=== PATIENT | male | born 1945 | race Caucasian/White ===

== ENCOUNTER 2018-02-04 15:35 | Outpatient (RCR) | payer MEDICARE, BC, SELFPAY ==
--- NOTE | 2018-02-05 08:25 | HP.OTEVAL ---
Patient's Visit Information ASHLEY LO is a 72 year old M, referred to Occupational Therapy by Cheyanne Craig, with a diagnosis of LE lymphedema. Date of Evaluation: 02/04/18 Occupational Therapist: Annalise Coburn, GRISELDA/Janett, T - Subjective Subjective: Pt states he started having sweeling in his LE about 8 weeks ago- went to his foot dr and he put pt is a unaboot- but it caused a new wound on his left LE. pt states his wound was healing slowly and he decided to go see a canvas goods maker. Pt has been using a cream on his LE that has been helpful. pt states he has been using compression socks for about 4-5 months. He got the compression socks at [employer] in [place]. Pt states he is going to get new ones soon. Pt states he did use a medicated cream that the canvas goods maker gave him. pt states he returned to canvas goods maker and he was refered to this Clinic and a wound center. - Lymphedema (Circumferential Measure) Ankle: right 28cm left 32cm Lower calf: right 27.5cm left 29cm Largest calf: right 39cm left 42cm Below knee: right 36.5cm left 39.5 cm - Lower Limb Functional Index Lower Extremity Functional Score: 56 - Goals Demonstrate a 20% reduction in edema by d/c: Yes Demonstrate adequate knowledge of self-bangaging by 1st week: Yes Demonstrate adequate knowledge skin care/prec by 2nd week: Yes Demonstrate adequate knowledge therapeutic exercises by d/c: Yes Select approp compression garment w/donning/care/wear by d/c: Yes Voice need to replace compression garment every 4-6mo by dc: Yes - Rehabilitation General Assessment: pt demo with swelling in left LE. skin dry- skin purple in color- wounds are wapped and pt has been using cream on his wounds. pt did a nice job with his wound waps. pt demo need for skilled therapy services to ed. pt on dx. Therapist ed. pt on lymph stim ex, use of lotion for skin care and use of compression socks. pt demo understanding of skin care, wraps to LE with use of tubigip to assist in keeping wraps from sliding down. pt demo frustration with how slow wound was healing, therapist ed. pt that wounds do take a long time to heal. discussed with pt that returning to wound center with is inital foot . to work with pt. pt agreed this POC. Therapist did ed. Pt. and gave handouts on ex to stimulate lymph fluid circ. and cont use of wraps and when wounds heal to use compression socks at all times ex. when sleeping. pt demo understanding. pt to call with questions or concerns. Rehabilitation Potential: Questionable - Anticipated Interventions Anticipated Interventions: Education re Diagnosis, Education re Life-long lymphedema Management, Education re Self-Bandaging Techniques, Education re Skin Care and Precautions, Education re Correct Donning Tech,Care&Wearing Sched Comp Garments, Caregiver Training, Home Program - Visit Plan General Plan: pt demo understanding of HEP and states he will return to is foot dr to work on his wounds. TEXT: Thank you for the opportunity to evaluate your patient. For Medicare and Medicare HMO plans, please review the plan of care and approve it. It will need to be FAXED BACK to us at [phone] for Medicare purposes. Please let me know if there are questions or concerns regarding this plan of care. Physician Signature: Date:
--- NOTE | 2018-03-19 11:17 | HP.OT.NRP ---
HP - Discharge Summary - Patient Information ASHLEY LO was seen in my office for initial evaluation on 02/04/18. The following Plan of Care was established for this patient: - Anticipated Interventions Anticipated Interventions: Education re Diagnosis, Education re Life-long lymphedema Management, Education re Self-Bandaging Techniques, Education re Skin Care and Precautions, Education re Correct Donning Tech,Care&Wearing Sched Comp Garments, Caregiver Training, Home Program This patient was last seen in our office 02/04/18. Pertinent comments regarding their Occupational therapy will appear below: pt was seen for intial OT eval only- pt has not scheduled or returned with compression gaments to ensure proper fit. Due to timelapse in schedule pt D/C at this time. At this point I will be discontinuing this patient from occupational therapy. I would be happy to see this patient again in the future if found appropriate by the physician. Thank you! Annalise Coburn, OTR/L, CHT
== END 2018-02-04 19:00 | disposition home or self-care (01) ==
LOC: OT 15:35
PROVIDERS: Visit Provider Dermatology Pediatric Dermatology
DX: I89.0 Lymphedema, not elsewhere classified (principal)
CPT/HCPCS: 97166

== ENCOUNTER 2019-02-17 11:30 | Outpatient (RCR) | payer MEDICARE, BC, SELFPAY ==
[2019-02-06 15:52] VITALS: RESP 20; TEMP 36.4; BMI 76.8
--- NOTE | 2019-02-06 16:55 | PCM.WC.HP ---
(1) Lower extremity ulceration Status: Acute Current Visit: Yes Code(s): L97.909 - Non-pressure chronic ulcer of unspecified part of unspecified lower leg with unspecified severity Comment: Bilateral (2) Bilateral lower extremity edema Status: Acute Current Visit: Yes Code(s): R60.0 - Localized edema (3) PAD (peripheral artery disease) Status: Acute Current Visit: Yes Code(s): I73.9 - Peripheral vascular disease, unspecified (4) T2DM (type 2 diabetes mellitus) Status: Acute Current Visit: Yes Code(s): E11.9 - Type 2 diabetes mellitus without complications (5) HTN (hypertension) Status: Chronic Current Visit: Yes Code(s): I10 - Essential (primary) hypertension (6) CAD (coronary artery disease) Status: Acute Current Visit: Yes Code(s): I25.10 - Atherosclerotic heart disease of [place] coronary artery without angina pectoris (7) Obesity Status: Acute Current Visit: Yes Code(s): E66.9 - Obesity, unspecified (8) Decreased dorsalis pedis pulse Status: Acute Current Visit: Yes Code(s): R09.89 - Other specified symptoms and signs involving the circulatory and respiratory systems (9) Tobacco abuse Status: Acute Current Visit: Yes Code(s): Z72.0 - Tobacco use (10) Venous insufficiency Status: Acute Current Visit: Yes Code(s): I87.2 - Venous insufficiency (chronic) (peripheral) History of Present Illness Date of Service: 02/06/19 Chief Complaint: Superficial lower extremity ulcers and swelling History of Wound: Shayan is a pleasant 73-year-old male who presents today with complaint of bilateral superficial lower leg ulcers and edema. Patient is managed by Kathleen Guaman(?), a primary care provider in [place], [place]. Significant past medical history includes a 60+ pack year history of smoking tobacco, cardiovascular disease with cardiac stenting times 3 (?), peripheral vascular disease of bilateral lower extremities, and rne-[id number]-[id number] diabetes. He has seen a vascular surgeon, Minesh Jeong, for placement of stents in legs. He is unsure if he has had stenting in 1 or both of his lower extremities. He reports his last leg stenting occurred about 4 years ago. He reports he has been dealing with the superficial ulcerations and swelling in his bilateral lower extremities for the past year. He previously saw Dr. Herber, a kick plate installer, but it was felt that they had reached a plateau with treatment. He then began seeing Dr. Craig, a supply chain technician, who was treating his legs with urea cream. He states he has been using this for about 3 to 4 months, as well as applying compression to bilateral lower extremities with Kerlix and Coban. Per patient, he reports he was discharged from Dr. Craig due to his current smoking status. He is unsure if there has been any improvement in the swelling and ulcerations of his legs with this treatment. At this time, patient has no open wounds requiring debridement. He does have weeping from bilateral lower extremities. He reports he has used Unna boots in the past with good efficacy. Denies any fever, chills, nausea, vomiting, diarrhea, purulent or foul-smelling drainage, or red, streaking rash. He denies any history of DVT. He is currently on Plavix and aspirin for maintenance of cardiac stents. Past Medical History Past Medical History: Chronic Problems HTN (hypertension) (Chronic) Allergies/Adverse Reactions: Allergies No Known Allergies Allergy (Verified 02/06/19 16:11) Home Medications: Ambulatory Orders Medication Instructions Recorded Aspirin [Aspirin, Baby] 81 mg PO DAILY@0800 02/06/19 Atorvastatin Calcium 40 mg PO 02/06/19 Cilostazol 100 mg PO 02/06/19 Clopidogrel Bisulfate [Clopidogrel] 100 mg PO 02/06/19 Colchicine 0.6 mg PO 02/06/19 Latanoprost [Xalatan] 2.5 ml OP 02/06/19 Metformin HCl 1,000 mg PO 02/06/19 Metoprolol Succinate 100 mg PO 02/06/19 Timolol 0.5% [Timoptic] 1 drp EACH EYE BID 02/06/19 Smoking Status: Current every day smoker Review of Systems Constitutional: Denies: Chills, Fever, Weight Change Eyes: Denies: Pain, Vision Change HEENT: Denies: Difficulty Hearing, Difficulty Swallowing, Sinus Congestion Cardiovascular: Reports: Edema. Denies: Chest Pain, Palpitations Respiratory: Denies: Cough, Shortness of Breath Gastrointestinal: Denies: Diarrhea, Nausea, Vomiting Genitourinary: Denies: Dysuria, Hematuria Skin: Reports: Wounds - See HPI Endocrine: Denies: Heat/ Cold Intolerance, Polydipsia, Polyuria Hematologic/ Lymphatic: Denies: Easy Bruising, Easy Bleeding - Physical Exam Vital Signs Temp Resp 97.6 F L 20 H 02/06/19 15:52 02/06/19 15:52 General: Alert, Oriented x3, Cooperative, No apparent distress HEENT: Atraumatic Oral: Moist Mucosa Lungs: Clear to auscultation, Normal air movement Cardiovascular: Regular rate, Regular Rhythm, Normal S1, Normal S2, No murmurs Abdomen: Soft, Non Tender, Obese Extremities: No clubbing, No cyanosis, Diminished Peripheral Pulses - Dorsal pedis pulses, Edema - 1+ bilateral lower extremity edema with chronic venous changes Skin: Ulcer/ Wound - Due to chronic venous changes, multiple superficial ulcerations present on bilateral lower extremities. No signs of obvious infection at this time. Wound Measurements and Assessment WC - Nurse 1 - General Ulcer Measurement Start: 02/06/19 15:27 Freq: Status: Active Protocol: Activity Type Activity Date Activity User E-Sign Co-Sign Detail Recorded Client Recorded Date Recorded By Document 02/06/19 15:52 DL [id number] 02/06/19 16:07 DL 02/06/19 15:52 Wound Center Nurse 1 [Ulcer Assessment] #2 LLE -Current Size (cm) - Length 42 -Current Size (cm) - Width 37 -Total Square Cm 1554 -Photo Taken Yes -Exudate Amt Medium -Exudate Type Serosanguineous -Wound Margin Indistinct, Non -Visible -Granulation Amt Large (67-100%) -Granulation Quality Red -Necrosis Amt None Present (0 %) -Structure Exposed N/A -Texture (Snow-wound Skin Appearance) Excoriation, Localized Edema ,Scarring -Moisture (Snow-wound Skin Appearance Weeping ) -Color (Snow-wound Skin Appearance) Erythema, Hemosiderin Staining -Temperature (Snow-wound Skin No Abnormality Appearance) (Pt Warm) -Tenderness on Palpation (Snow-wound No Skin Appearance) -Ulcer Cleansing Wound Cleanser -Foul Odor after Cleansing No #1 RLe -Current Size (cm) - Length 36 -Current Size (cm) - Width 38 -Current Size (cm) - Depth 0.1 -Total Square Cm 1368 -Photo Taken Yes -Exudate Amt Small -Exudate Type Serosanguineous -Wound Margin Indistinct, Non -Visible -Granulation Amt Large (67-100%) -Granulation Quality Red -Necrosis Amt None Present (0 %) -Structure Exposed N/A -Texture (Snow-wound Skin Appearance) Excoriation, Localized Edema ,Scarring -Moisture (Snow-wound Skin Appearance Weeping ) -Color (Snow-wound Skin Appearance) Erythema, Hemosiderin Staining -Temperature (Snow-wound Skin No Abnormality Appearance) (Pt Warm) -Tenderness on Palpation (Snow-wound No Skin Appearance) -Ulcer Cleansing Wound Cleanser -Foul Odor after Cleansing No [Edema Assessment] -Right Calf (cm) 38 -Right Ankle (cm) 26.7 -Left Calf (cm) 37.5 -Left Ankle (cm) 26.5 WC - Nurse 2 - General Ulcer CM Notes Start: 02/06/19 15:27 Freq: Status: Active Protocol: Activity Type Activity Date Activity User E-Sign Co-Sign Detail Recorded Client Recorded Date Recorded By Document 02/06/19 16:49 AN [id number] 02/06/19 16:50 AN 02/06/19 16:49 Pain Scale: 0-10 Numeric [Pain] -Is Patient Pain Free? Yes Musculoskeletal: No Tenderness to Palpation of Joints or Extremities, No Muscle Wasting Neurological: Neuro grossly intact Psych/Mental Status: Normal Affect, Appropriate, Alert and oriented to time, place, person, mood and affect Debridement Note Post-Debridement Measurements/Treatment - Nurse 2 - General Ulcer CM Notes Start: 02/06/19 15:27 Freq: Status: Active Protocol: Activity Type Activity Date Activity User E-Sign Co-Sign Detail Recorded Client Recorded Date Recorded By Document 02/06/19 16:49 AN [id number] 02/06/19 16:50 AN 02/06/19 16:49 Pain Scale: 0-10 Numeric Is Patient Pain Free? Yes No debridement was completed today Assessment/Plan Active Problems Bilateral lower extremity edema (Acute) PAD (peripheral artery disease) (Acute) Lower extremity ulceration (Acute) Bilateral T2DM (type 2 diabetes mellitus) (Acute) HTN (hypertension) (Chronic) CAD (coronary artery disease) (Acute) Obesity (Acute) Decreased dorsalis pedis pulse (Acute) Tobacco abuse (Acute) Venous insufficiency (Acute) Assessment: see above diagnoses Plan: The patient was seen and examined at the wound center today and was updated on the plan of care. No debridement done today in office, as none indicated.. The patients wound care will consist of: Application of bilateral Unna boots, change every 3 days. States that he has tolerated the Unna boots well in the past. Wound cultures held at this time.. Baseline bloodwork ordered. Vascular studies ordered. We will also request prior records from his vascular surgeon for continuity of care. Patient educated on the importance of diet on wound healing and instructed to increase protein and vitamin C intake. Patient verbalized understanding. Patient will follow up at wound healing center in one week or sooner if needed. This note was generated with [employer]ik[employer] dictation software. It may contain incorrect words, spelling, and punctuation that were not noted in checking the note before signing. Code Visit Office Visits / Consults: [id number] OV L4 New
[2019-02-10 15:47] VITALS: BP 134/53; PULSE 70; RESP 16; TEMP 36.4; BMI 76.8
--- NOTE | 2019-02-13 12:36 | VDLE_ITS ---
Reason For Study: Lower leg edema RIGHT LEFT CFV is compressible, spontaneous, phasic, CFV is compressible, spontaneous, phasic, competent and demonstrates normal competent, and demonstrates normal augmentation. augmentation. FV is compressible, spontaneous, phasic, FV is compressible, spontaneous, phasic, competent and demonstrates normal competent and demonstrates normal augmentation. augmentation. POP V is compressible, spontaneous, phasic, POP V is compressible, spontaneous, phasic, competent and demonstrates normal competent and demonstrates normal augmentation. augmentation. T/P Trunk is compressible. T/P Trunk is compressible. PTV is compressible. PTV is compressible. RT PerV is compressible. LT PerV is compressible. SFJ is competent and measures 0.76 x 0.80 cm. SFJ is competent and measures 0.92 x 0.88 cm. GSV proximal thigh measures 0.40 x 0.45 cm. GSV proximal thigh measures 0.69 x 0.78 cm. GSV at knee measures 0.53 x 0.58 cm. GSV at knee measures 0.49 x 0.52 cm. GSV is competent throughout. GSV is competent throughout. ASV mid calf is INCOMPETENT for greater than SSV at junction is competent and measures 0.5 seconds and measures 0.31 x 0.36 cm. 0.43 x 0.38 cm. SSV at junction is competent and measures Structure noted in the Lt groin with vascular 0.39 x 0.39 cm. flow measuring approximently 1.28 x 3.00 cm. Structure noted in the Rt groin with vascular flow measuring approximently 1.64 x 4.19 cm. Procedure Exam performed in department. A preliminary report was called and/or faxed to . Interpretation Summary Deep veins of the lower extremities are bilaterally patent and compressible segmentally. There is no evidence of deep vein thrombosis on either side. Valvular competence appears intact within the proximal deep venous systems bilaterally. The great saphenous veins appear bilaterally patent and compressible segmentally. Sapheno-femoral junctions are bilaterally competent . Valvular competence appears to be intact segmentally within the great saphenous veins bilaterally. Small saphenous veins are patent and competent bilaterally. An accessory saphenous vein in the right mid-calf is incompetent. A vascularized structure is noted in the groin bilaterally, with dimensions as documented above. These may represent lymphadenopathy. Clinical correlation is advised. Ordering Physician: Sly March Referring Physician: Kathleen Salinas Performed By: Amanda Maldonado RVT
--- NOTE | 2019-02-13 12:37 | ART_ITS ---
Reason For Study: Decreased pedal pulses Procedure A bilateral lower extremity continuous wave Doppler with analog waveform analysis,segmental pressures,and ankle brachial indexes without exercise. Left Segmental Pressures Left brachial= 136mmHg. Left thigh = 116mmHg. Left calf = 111mmHg. Left posterior tibial artery = 78mmHg. Left dorsalis pedis artery = 103mmHg. Left digit = 61 mmHg. The left dorsalis pedis waveforms are biphasic. The left posterior tibial artery waveforms are biphasic. Right Segmental Pressures Right brachial= 133mmHg. Right thigh = 132mmHg. Right calf = 101mmHg. Right posterior tibial artery = 102mmHg. Right dorsalis pedis artery = 111mmHg. Right digit = 61 mmHg. The right dorsalis pedis waveforms are biphasic. The right posterior tibial artery waveforms are biphasic. Indices The right ankle brachial index by the dorsalis pedis is 0.82. The right ankle brachial index by the posterior tibial artery is 0.75. The right digital-brachial index is 0.45. The left ankle brachial index by the dorsalis pedis is 0.76. The left ankle brachial index by the posterior tibial artery is 0.57. The left digital-brachial index is 0.45. Interpretation Summary Biphasic Doppler waveforms are noted at ankle level bilaterally. Pulse-volume recording waveform amplitudes are diminished at digital level bilaterally. The resting right ankle-brachial index is mildly diminished. The resting left ankle-brachial index is moderately diminished. Digital-brachial indices are moderately diminished bilaterally. There is mild impairment of arterial flow at ankle level on the right. There is moderate impairment of arterial flow at ankle level on the left. There is moderate impairment of arterial flow at digital level bilaterally. The arterial occlusive disease appears to be bilateral, and is multi- segmental in nature. Ordering Physician: Sly March Referring Physician: Kathleen Salinas Performed By: Amanda Maldonado RVT
[2019-02-13 16:31] VITALS: BP 143/75; PULSE 92; RESP 16; TEMP 37; BMI 76.8
--- NOTE | 2019-02-13 17:30 | PCM.WC.PN ---
(1) Diabetic ulcer of right foot Status: Acute Current Visit: Yes Qualifiers: Diabetic foot ulcer location: midfoot Diabetes mellitus type: type 2 Non-pressure ulcer stage: with fat layer exposed Qualified Code(s): E11.621 - Type 2 diabetes mellitus with foot ulcer; L97.412 - Non-pressure chronic ulcer of right heel and midfoot with fat layer exposed Code(s): E11.621 - Type 2 diabetes mellitus with foot ulcer; L97.519 - Non-pressure chronic ulcer of other part of right foot with unspecified severity Comment: negro 2 (2) Diabetic ulcer of left foot Status: Acute Current Visit: Yes Qualifiers: Diabetic foot ulcer location: other Diabetes mellitus type: type 2 Non-pressure ulcer stage: with fat layer exposed Qualified Code(s): E11.621 - Type 2 diabetes mellitus with foot ulcer; L97.522 - Non-pressure chronic ulcer of other part of left foot with fat layer exposed Code(s): E11.621 - Type 2 diabetes mellitus with foot ulcer; L97.529 - Non-pressure chronic ulcer of other part of left foot with unspecified severity Comment: negro 1 (3) Lower extremity ulceration Status: Acute Current Visit: Yes Code(s): L97.909 - Non-pressure chronic ulcer of unspecified part of unspecified lower leg with unspecified severity Comment: Bilateral (4) Bilateral lower extremity edema Status: Acute Current Visit: Yes Code(s): R60.0 - Localized edema (5) PAD (peripheral artery disease) Status: Acute Current Visit: Yes Code(s): I73.9 - Peripheral vascular disease, unspecified (6) T2DM (type 2 diabetes mellitus) Status: Acute Current Visit: Yes Code(s): E11.9 - Type 2 diabetes mellitus without complications (7) HTN (hypertension) Status: Chronic Current Visit: Yes Code(s): I10 - Essential (primary) hypertension (8) CAD (coronary artery disease) Status: Acute Current Visit: Yes Code(s): I25.10 - Atherosclerotic heart disease of [place] coronary artery without angina pectoris (9) Obesity Status: Acute Current Visit: Yes Code(s): E66.9 - Obesity, unspecified (10) Decreased dorsalis pedis pulse Status: Acute Current Visit: Yes Code(s): R09.89 - Other specified symptoms and signs involving the circulatory and respiratory systems (11) Tobacco abuse Status: Acute Current Visit: Yes Code(s): Z72.0 - Tobacco use (12) Venous insufficiency Status: Acute Current Visit: Yes Code(s): I87.2 - Venous insufficiency (chronic) (peripheral) Type of Wound Date of Service: 02/13/19 Chief Complaint: Superficial lower extremity ulcers and swelling History of Wound: Shayan is a pleasant 73-year-old male who presents today with complaint of bilateral superficial lower leg ulcers and edema. Patient is managed by Kathleen Guaman(?), a primary care provider in [place], [place]. Significant past medical history includes a 60+ pack year history of smoking tobacco, cardiovascular disease with cardiac stenting times 3 (?), peripheral vascular disease of bilateral lower extremities, and boe-vyadgwf-pfghoiekg diabetes. He has seen a vascular surgeon, Minesh Jeong, for placement of stents in legs. He is unsure if he has had stenting in 1 or both of his lower extremities. He reports his last leg stenting occurred about 4 years ago. He reports he has been dealing with the superficial ulcerations and swelling in his bilateral lower extremities for the past year. He previously saw Dr. Craven, a pricing/signage team member, but it was felt that they had reached a plateau with treatment. He then began seeing Dr. Craig, a decontaminator, who was treating his legs with urea cream. He states he has been using this for about 3 to 4 months, as well as applying compression to bilateral lower extremities with Kerlix and Coban. Per patient, he reports he was discharged from Dr. Craig due to his current smoking status. He is unsure if there has been any improvement in the swelling and ulcerations of his legs with this treatment. At this time, patient has no open wounds requiring debridement. He does have weeping from bilateral lower extremities. He reports he has used Unna boots in the past with good efficacy. Denies any fever, chills, nausea, vomiting, diarrhea, purulent or foul-smelling drainage, or red, streaking rash. He denies any history of DVT. He is currently on Plavix and aspirin for maintenance of cardiac stents. Progress of Wound: Patient's superficial ulcerations on bilateral lower extremities have improved dramatically with the application of Unna boots which she tolerated well. However during today's visit, and a large amount of callus was removed from the right plantar surface and also the left lateral foot and revealed diabetic foot ulcers. A very foul smell was present from the right DFU and therefore site was cultured. Patient states that he has had both areas treated from his previous pricing/signage team member and that the calluses shaved down in the past, however he is currently not seen podiatry and would like a new referral. His blood work is still pending. His vascular's were reviewed and demonstrated a left DANIKA of 0.76 and right DANIKA of 0.82 preliminary. He denies any systemic signs of infection. The patient otherwise denies any fever, chills, nausea, vomiting, shortness of breath, chest pain or pressure, palpitations, orthopnea, lower extremity edema, syncope or presyncopal episodes. - Physical Exam Vital Signs Temp Pulse Resp BP 98.6 F 92 16 143/75 H 02/13/19 16:31 02/13/19 16:31 02/13/19 16:31 02/13/19 16:31 General: Alert, Oriented x3, Cooperative, No apparent distress HEENT: Atraumatic Oral: Moist Mucosa Lungs: Clear to auscultation Cardiovascular: Regular rate Abdomen: Soft, Non Tender, Obese Extremities: No clubbing, No cyanosis, No edema, Diminished Peripheral Pulses Skin: Ulcer/ Wound - Superficial ulcerations to bilateral lower extremities have improved and are almost healed, large amount of callus was removed with a scalpel to the left lateral foot and the right plantar surface which both revealed DFU's, [place] grade 2 on the right Pema grade 1 on the left, very foul smell present, site was cultured on the right Wound Measurements and Assessment WC - Nurse 1 - General Ulcer Measurement Start: 02/06/19 15:27 Freq: Status: Active Protocol: Activity Type Activity Date Activity User E-Sign Co-Sign Detail Recorded Client Recorded Date Recorded By Document 02/13/19 16:31 [facility] [id number] 02/13/19 16:40 [facility] 02/13/19 16:31 Wound Center Nurse 1 [Ulcer Assessment] #3- L LAT PLANTAR FOOT -Combined with other wound No -Current Size (cm) - Length 1.1 -Current Size (cm) - Width 1.5 -Current Size (cm) - Depth 0.1 -Total Square Cm 1.65 -Date of Last Picture (Recall this 02/13/19 field) -Photo Taken Yes -Epithelialization None Present -Tunneling No -Undermining/Tunneling No -Circular Undermining No -Exudate Amt None Present -Wound Margin Distinct, Outline Attached -Granulation Amt Large (67-100%) -Granulation Quality Red -Slough/Fibrin No -Necrosis Amt None Present (0 %) -Texture (Snow-wound Skin Appearance) Assessed,Callus ,Scarring -Moisture (Snow-wound Skin Appearance Assessed,Dry/ ) Scaly -Color (Snow-wound Skin Appearance) Assessed -Temperature (Snow-wound Skin No Abnormality Appearance) (Pt Warm) -Tenderness on Palpation (Snow-wound No Skin Appearance) -Ulcer Cleansing Rinsed/ Irrigated with Saline -Foul Odor after Cleansing No -Anesthetic Used 5% Lidocaine Gel [Edema Assessment] -Lower Limb Edema Present Yes -Right Calf (cm) 38.3 -Right Ankle (cm) 25.8 -Left Calf (cm) 40.8 -Left Ankle (cm) 26.2 WC - Nurse 2 - General Ulcer CM Notes Start: 02/06/19 15:27 Freq: Status: Active Protocol: Activity Type Activity Date Activity User E-Sign Co-Sign Detail Recorded Client Recorded Date Recorded By Document 02/13/19 16:56 AN [id number] 02/13/19 17:06 AN 02/13/19 16:56 Wound Center Nurse 2 [Procedure/Treatment] #4 RIGHT PLANTAR DFU -Time 17:06 -Correct Patient Yes -Correct Side, Site, Position Yes -Correct Procedure Yes -Procedure Performed Yes -Type of Procedure Debridement -Clinical Debridement Subcutaneous -Post Debridement Size (cm) - Length 2 -Post Debridement Size (cm) - Width 1.0 -Post Debridement Size (cm) - Depth 1.3 -Total Square Cm 2.0 -Wound/Ulcer Outcome Not Healed -Ulcer Cleansing Rinsed/ Irrigated with Saline -Foul Odor after Cleansing No -Bioengineered Tissue No -Bleeding Controlled with Pressure -Offloading Yes -Treatment Response Procedure Tolerated Well #3- L LAT PLANTAR FOOT -Time 16:56 -Correct Patient Yes -Correct Side, Site, Position Yes -Correct Procedure Yes -Procedure Performed Yes -Type of Procedure Debridement -Clinical Debridement Subcutaneous -Post Debridement Size (cm) - Length 2.0 -Post Debridement Size (cm) - Width 1.0 -Post Debridement Size (cm) - Depth 0.1 -Total Square Cm 2.00 -Wound/Ulcer Outcome Not Healed -Ulcer Cleansing Rinsed/ Irrigated with Saline -Foul Odor after Cleansing No -Bioengineered Tissue No -Bleeding Controlled with Pressure -Offloading No -Treatment Response Procedure Tolerated Well [See Physician Procedure note for Specifics] Pain Scale: 0-10 Numeric [Pain] -Is Patient Pain Free? Yes Neurological: Neuro grossly intact Psych/Mental Status: Normal Affect, Appropriate, Alert and oriented to time, place, person, mood and affect Debridement Note Post-Debridement Measurements/Treatment WC - Nurse 2 - General Ulcer CM Notes Start: 02/06/19 15:27 Freq: Status: Active Protocol: Activity Type Activity Date Activity User E-Sign Co-Sign Detail Recorded Client Recorded Date Recorded By Document 02/06/19 16:49 AN [id number] 02/06/19 16:50 AN Document 02/13/19 16:56 AN [id number] 02/13/19 17:06 AN 02/06/19 02/13/19 16:49 16:56 Wound Center Nurse 2 #4 RIGHT PLANTAR DFU -Time 17:06 -Correct Patient Yes -Correct Side, Site, Position Yes -Correct Procedure Yes -Procedure Performed Yes -Type of Procedure Debridement -Clinical Debridement Subcutaneous -Post Debridement Size (cm) - Length 2 -Post Debridement Size (cm) - Width 1.0 -Post Debridement Size (cm) - Depth 1.3 -Total Square Cm 2.0 -Wound/Ulcer Outcome Not Healed -Ulcer Cleansing Rinsed/ Irrigated with Saline -Foul Odor after Cleansing No -Bioengineered Tissue No -Bleeding Controlled with Pressure -Offloading Yes -Treatment Response Procedure Tolerated Well #3- L LAT PLANTAR FOOT -Time 16:56 -Correct Patient Yes -Correct Side, Site, Position Yes -Correct Procedure Yes -Procedure Performed Yes -Type of Procedure Debridement -Clinical Debridement Subcutaneous -Post Debridement Size (cm) - Length 2.0 -Post Debridement Size (cm) - Width 1.0 -Post Debridement Size (cm) - Depth 0.1 -Total Square Cm 2.00 -Wound/Ulcer Outcome Not Healed -Ulcer Cleansing Rinsed/ Irrigated with Saline -Foul Odor after Cleansing No -Bioengineered Tissue No -Bleeding Controlled with Pressure -Offloading No -Treatment Response Procedure Tolerated Well Pain Scale: 0-10 Numeric Is Patient Pain Free? Yes Yes Wound debrided: Right diabetic foot ulcer Laterality: Right Wound Grade/Stage: Negro grade 2 Type of Debridement: Excisional debridement Anesthesia Used: 5% Lidocaine Gel Depth: in the subcutaneous layer Percentage of wound debrided: 100 Instrument Used: 7mm curette, #15 blade Tissue Removed: Large amount of callus, slough, and devitalized tissue Severity: Fat Layer Exposed Amount of bleeding with debridement: Mild Bleeding Controlled with: Pressure Patient tolerated procedure well - Additional Wound Wound debrided: Left diabetic foot ulcer Laterality: Left Wound Grade/Stage: nergo grade 1 Type of Debridement: Excisional debridement Anesthesia Used: 5% Lidocaine Gel Depth: in the subcutaneous layer Percentage of wound debrided: 100 Instrument Used: 7mm curette, #15 blade Tissue Removed: slough and devitalized tissue Severity: Fat Layer Exposed Amount of bleeding with debridement: Mild Bleeding Controlled with: Pressure Patient tolerated procedure: Patient tolerated procedure well Assessment/Plan Active Problems Bilateral lower extremity edema (Acute) PAD (peripheral artery disease) (Acute) Lower extremity ulceration (Acute) Bilateral T2DM (type 2 diabetes mellitus) (Acute) HTN (hypertension) (Chronic) CAD (coronary artery disease) (Acute) Obesity (Acute) Decreased dorsalis pedis pulse (Acute) Tobacco abuse (Acute) Venous insufficiency (Acute) Diabetic ulcer of right foot (Acute) negro 2 Diabetic ulcer of left foot (Acute) negro 1 Assessment: see above diagnoses Plan: The patient was seen and examined at the wound center today and was updated on the plan of care. A subcutaneous debridement was performed today and the patient tolerated well, a right and left DFU was revealed today and will be worked up. The patients wound care will consist of: Application of bilateral Unna boots for superficial ulcerations with layered Maura over the DFU's, change every 3 days. Patient was educated on offloading mechanisms and a referral to podiatry was placed. 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 Wound cultures of right DFU collected today. Baseline bloodwork pending. Vascular studies preliminary reviewed and showed left DANIKA of 0.76 and right DANIKA of 0.82. We will also request prior records from his vascular surgeon for continuity of care. Patient educated on the importance of diet on wound healing and instructed to increase protein and vitamin C intake. Patient verbalized understanding. Patient will follow up at wound healing center in one week or sooner if needed. This note was generated with [employer] dictation software. It may contain incorrect words, spelling, and punctuation that were not noted in checking the note before signing. Code Visit Office Visits / Consults: [id number] OV L3 Est [id number]: [id number] Fay subq tissue 20 sq cm/<
--- NOTE | 2019-02-17 08:57 | RAD_ITS ---
STUDY: X-RAY - RIGHT FOOT CLINICAL: Male, 73 years old. Negro 3 diabetic foot ulcer on pad of the distal fourth metatarsal. TECHNIQUE: 3 view(s) of the foot. COMPARISON: None. FINDINGS: Limited visualization secondary to calcification or radiopaque material within an overlying sock or bandage. Normal talus, calcaneus, and tarsal bones. There is arthrosis of the visualized subtalar, talonavicular, calcaneocuboid, tarsal and tarsometatarsal articulations. Normal metatarsi. Normal metatarsophalangeal joint of the great toe. Normal tibial and fibular sesamoid bones. Normal interphalangeal joint of the great toe. Normal phalanges of the great toe. Normal second through fifth metatarsophalangeal joints. Normal interphalangeal joints and phalanges of the lesser toes. There is no obvious cortical disruption or osteomyelitis. The soft tissue structures are unremarkable. RAD/Foot min 3 Views IMPRESSION: 1. Degenerative changes are hyperinflated without acute osseous abnormality. 2. Minor limitation due to radiopaque tissue in the overlying bandage or stocking. Electronically Signed: Hakeem Johns DO at 16:54 EDT Tel [phone], Service support ,
[2019-02-17 11:24] VITALS: BP 146/72; PULSE 81; RESP 18; TEMP 36.3; BMI 76.8
== END 2019-02-17 23:59 ==
LOC: WC 11:30
PROVIDERS: Family Provider Nurse Practitioner Family; PCP Nurse Practitioner Family; Referring Provider Nurse Practitioner Family; Visit Provider Nurse Practitioner Family
DX: E11.621 Type 2 diabetes mellitus with foot ulcer (principal); R60.0 Localized edema; R09.89 Other specified symptoms and signs involving the circulatory and respiratory systems; L97.512 Non-pressure chronic ulcer of other part of right foot with fat layer exposed; L97.522 Non-pressure chronic ulcer of other part of left foot with fat layer exposed; I10 Essential (primary) hypertension; I25.10 Atherosclerotic heart disease of native coronary artery without angina pectoris; E66.9 Obesity, unspecified; I87.2 Venous insufficiency (chronic) (peripheral); M79.89 Other specified soft tissue disorders; Z95.5 Presence of coronary angioplasty implant and graft; E11.51 Type 2 diabetes mellitus with diabetic peripheral angiopathy without gangrene; Z79.02 Long term (current) use of antithrombotics/antiplatelets; Z79.82 Long term (current) use of aspirin; Z79.899 Other long term (current) drug therapy; F17.200 Nicotine dependence, unspecified, uncomplicated
CPT/HCPCS: 11042; 29580; 73630; 87070; 87075; 87076; 87077; 87186; 87205; 93923; 93970; 99212; 99213; G0463

== ENCOUNTER → 2019-03-13 11:10 | Outpatient (CLI) | payer MEDICARE, BC, SELFPAY ==
[2019-03-12 08:48] VITALS: BMI 76.8
[2019-03-13 13:09] LABS: Hematocrit 37.8 % (40-54); Mean Corp Hgb Conc 31.7 g/dL (32-36); Mean Corpuscular Hgb 27.9 pg (27.0-32.0); Mean Corpuscular Volume 87.9 fL (80-94); Mean Platelet Vol. 9.7 fl (6.2-12.0); POSITIVE COUNT YES; POSITIVE MORPHOLOGY YES; Platelet Count 150 K/mm3 (150-450); RBC Distribution Width CV 15.9 % (11.6-14.6); RBC Distribution Width SD 51.3 fl (35.1-43.9); White Blood Count 8.4 K/mm3 (4.4-11.0)
[2019-03-13 13:13] LABS: Differential Indicated MANUAL DIFF
[2019-03-13 13:29] LABS: Hemoglobin A1c 6.4 % (4.2-6.3)
[2019-03-13 13:37] LABS: ALB/GLOB Ratio 0.7 RATIO (0.9-2.4); AST(SGOT) 49 U/L (15-37); Alanine Aminotransfer ALT/SGPT 67 U/L (16-61); Albumin, Serum 2.9 g/dL (3.2-5.0); Alkaline Phosphatase 233 U/L (45-117); Anion Gap 3 (5-15); BUN 14 mg/dL (7-18); BUN/Creat Ratio 13.7 RATIO (10-20); Calcium,Total 8.8 mg/dL (8.5-10.1); Chloride 101 mmol/L (98-107); Creatinine, Serum 1.02 mg/dL (0.70-1.30); EST Glomerular Filtration Rate 76 mL/min (>60); Est Glom Filt Rate - Afr Amer 92 mL/min (>60); Globulin 4.4 g/dL (2.2-4.2); Glucose 79 mg/dL (74-106); Potassium 4.5 mmol/L (3.5-5.1); Protein, Total 7.3 g/dL (6.4-8.2); Sodium Level 134 mmol/L (136-145)
[2019-03-13 13:57] LABS: Eosinophil 4 % (0-5); Lymphocyte 13 % (19-41); Metamyelocyte 5 % (0-1); Monocyte 3 % (0-10); Neutrophil-Band 5 % (0-5); Neutrophil-Segmented 70 % (47-70); Platelet Estimate ADEQUATE (ADEQ); Red Cell Morphology NORM C+C NORMAL (NORM C&C); Total Cells Counted 100 (MANUAL DIFF)
[2019-03-13 13:58] LABS: Absolute Lymphocyte Count 1.08 X10^3/uL (0.83-4.51); Absolute Neutrophil Count 6.3 X10^3/uL (2.0-7.7); Lymphocyte # 1.08 X10^3/ul (4.0); Neutrophil # 6.27 X10^3/uL (2.7-7.7)
[2019-03-14 11:54] LABS: Pathologist Review Reviewed
== END ==
PROVIDERS: Podiatrist; Family Provider Nurse Practitioner Family; PCP Nurse Practitioner Family; Referring Provider Nurse Practitioner Family; Visit Provider Nurse Practitioner Family
DX: E11.621 Type 2 diabetes mellitus with foot ulcer (principal); L97.509 Non-pressure chronic ulcer of other part of unspecified foot with unspecified severity
CPT/HCPCS: 36415; 80053; 83036; 84134; 85025

== ENCOUNTER 2019-03-19 11:30 | Outpatient (RCR) | payer MEDICARE, BC, SELFPAY ==
[2019-02-18 01:18] VITALS: BP 146/72; PULSE 81; RESP 18; TEMP 36.3
[2019-02-20 14:56] VITALS: BP 152/63; PULSE 75; RESP 20; TEMP 36.4; BMI 76.8
[2019-02-24 09:18] VITALS: BP 163/72; PULSE 70; RESP 18; TEMP 36.1; BMI 76.8
--- NOTE | 2019-02-26 15:12 | PCM.WC.PN ---
(1) Bilateral lower extremity edema Status: Acute Current Visit: Yes Code(s): R60.0 - Localized edema (2) Diabetic ulcer of left foot Status: Acute Current Visit: Yes Qualifiers: Code(s): E11.621 - Type 2 diabetes mellitus with foot ulcer; L97.529 - Non-pressure chronic ulcer of other part of left foot with unspecified severity Comment: negro 1 (3) Diabetic ulcer of right foot Status: Acute Current Visit: Yes Qualifiers: Code(s): E11.621 - Type 2 diabetes mellitus with foot ulcer; L97.519 - Non-pressure chronic ulcer of other part of right foot with unspecified severity Comment: negro 2 (4) Lower extremity ulceration Status: Acute Current Visit: Yes Code(s): L97.909 - Non-pressure chronic ulcer of unspecified part of unspecified lower leg with unspecified severity Comment: Bilateral (5) Obesity Status: Acute Current Visit: Yes Code(s): E66.9 - Obesity, unspecified (6) PAD (peripheral artery disease) Status: Acute Current Visit: No Code(s): I73.9 - Peripheral vascular disease, unspecified (7) Tobacco abuse Status: Acute Current Visit: No Code(s): Z72.0 - Tobacco use (8) Venous insufficiency Status: Acute Current Visit: No Code(s): I87.2 - Venous insufficiency (chronic) (peripheral) (9) HTN (hypertension) Status: Chronic Current Visit: No Code(s): I10 - Essential (primary) hypertension Type of Wound Date of Service: 02/20/19 Chief Complaint: Superficial lower extremity ulcers and swelling, diabetic foot ulcers left and right History of Wound: Shayan is a pleasant 73-year-old male who presents today with complaint of bilateral superficial lower leg ulcers and edema. Patient is managed by Kathleen Guaman(?), a primary care provider in [place], [place]. Significant past medical history includes a 60+ pack year history of smoking tobacco, cardiovascular disease with cardiac stenting times 3 (?), peripheral vascular disease of bilateral lower extremities, and bww-aefurqu-ebxdrjcem diabetes. He has seen a vascular surgeon, Minesh Jeong, for placement of stents in legs. He is unsure if he has had stenting in 1 or both of his lower extremities. He reports his last leg stenting occurred about 4 years ago. He reports he has been dealing with the superficial ulcerations and swelling in his bilateral lower extremities for the past year. He previously saw Dr. Craven, a script developer, but it was felt that they had reached a plateau with treatment. He then began seeing Dr. Craig, a assistant teacher, who was treating his legs with urea cream. He states he has been using this for about 3 to 4 months, as well as applying compression to bilateral lower extremities with Kerlix and Coban. Per patient, he reports he was discharged from Dr. Craig due to his current smoking status. He is unsure if there has been any improvement in the swelling and ulcerations of his legs with this treatment. At this time, patient has no open wounds requiring debridement. He does have weeping from bilateral lower extremities. He reports he has used Unna boots in the past with good efficacy. Denies any fever, chills, nausea, vomiting, diarrhea, purulent or foul-smelling drainage, or red, streaking rash. He denies any history of DVT. He is currently on Plavix and aspirin for maintenance of cardiac stents. Progress of Wound: Patient's superficial ulcerations on bilateral lower extremities have improved dramatically with the application of Unna boots which he tolerated well. Guarding his bilateral DFU's, size appears stable and wound beds are beefy red without any foul smell this week. Cultures were reviewed from last week and positive for staph, strep, and anaerobic cocci and patient was started on Augmentin which she is tolerating. His blood work is still pending. His vascular's were reviewed and demonstrated a left DANIKA of 0.76 and right DANIKA of 0.82 with moderate and mild arterial occlusive disease and patient was instructed to follow-up with his vascular specialist. He denies any systemic signs of infection. The patient otherwise denies any fever, chills, nausea, vomiting, shortness of breath, chest pain or pressure, palpitations, orthopnea, lower extremity edema, syncope or presyncopal episodes. - Physical Exam Vital Signs Temp Pulse Resp BP 97.0 F L 70 18 163/72 H 02/24/19 09:18 02/24/19 09:18 02/24/19 09:18 02/24/19 09:18 General: Alert, Oriented x3, Cooperative, No apparent distress HEENT: Atraumatic Oral: Moist Mucosa Lungs: Clear to auscultation Cardiovascular: Regular rate Abdomen: Soft, Non Tender Extremities: No clubbing, No cyanosis, Edema - Generalized bilateral lower extremity edema Skin: Ulcer/ Wound - Nursing documentation, superficial ulcerations to bilateral lower extremities healed, DFU to right and left foot with adherent slough, no signs of obvious infection at this time Wound Measurements and Assessment WC - Nurse 1 - General Ulcer Measurement Start: 02/20/19 14:56 Freq: Status: Active Protocol: Activity Type Activity Date Activity User E-Sign Co-Sign Detail Recorded Client Recorded Date Recorded By Document 02/24/19 09:18 MW [id number] 02/24/19 09:20 MW 02/24/19 09:18 Wound Center Nurse 1 [Edema Assessment] -Lower Limb Edema Present Yes -Right Calf (cm) 37.0 -Right Ankle (cm) 24.6 -Left Calf (cm) 39.4 -Left Ankle (cm) 25.6 Neurological: Neuro grossly intact Psych/Mental Status: Normal Affect, Appropriate, Alert and oriented to time, place, person, mood and affect Debridement Note Post-Debridement Measurements/Treatment WC - Nurse 2 - General Ulcer CM Notes Start: 02/20/19 14:56 Freq: Status: Active Protocol: Activity Type Activity Date Activity User E-Sign Co-Sign Detail Recorded Client Recorded Date Recorded By Document 02/20/19 15:44 AN [id number] 02/20/19 16:00 AN 02/20/19 15:44 Wound Center Nurse 2 #4 RIGHT PLANTAR DFU -Time 15:45 -Correct Patient Yes -Correct Side, Site, Position Yes -Correct Procedure Yes -Procedure Performed Yes -Type of Procedure Debridement -Clinical Debridement Subcutaneous -Post Debridement Size (cm) - Length 1.3 -Post Debridement Size (cm) - Width 1.0 -Post Debridement Size (cm) - Depth 0.5 -Total Square Cm 1.30 -Wound/Ulcer Outcome Not Healed -Bioengineered Tissue Yes -Type of bioengineered Tissue [id number] -Treatment Response Procedure Tolerated Well #3- L LAT PLANTAR FOOT -Time 15:45 -Correct Patient Yes -Correct Side, Site, Position Yes -Correct Procedure Yes -Procedure Performed Yes -Type of Procedure Debridement -Clinical Debridement Subcutaneous -Post Debridement Size (cm) - Length 1.7 -Post Debridement Size (cm) - Width 1.5 -Post Debridement Size (cm) - Depth 0.2 -Total Square Cm 2.55 -Wound/Ulcer Outcome Not Healed -Ulcer Cleansing Rinsed/ Irrigated with Saline -Bioengineered Tissue Yes -Type of bioengineered Tissue [id number] -Bleeding Controlled with Pressure -Treatment Response Procedure Tolerated Well Pain Scale: 0-10 Numeric Is Patient Pain Free? Yes Wound debrided: Right DFU Negro 2 Laterality: Right Type of Debridement: Excisional debridement Anesthesia Used: 5% Lidocaine Gel Depth: in the subcutaneous layer Percentage of wound debrided: 100 Instrument Used: 3mm curette, #12 blade Tissue Removed: Slough and devitalized tissue Severity: Fat Layer Exposed Amount of bleeding with debridement: Mild Bleeding Controlled with: Pressure Patient tolerated procedure well - Additional Wound Wound debrided: Left DFU Negro 2 Laterality: Left Type of Debridement: Excisional debridement Anesthesia Used: 5% Lidocaine Gel Depth: in the subcutaneous layer Percentage of wound debrided: 100 Instrument Used: 7mm curette Tissue Removed: Slough and devitalized tissue Severity: Fat Layer Exposed Amount of bleeding with debridement: Mild Bleeding Controlled with: Pressure Patient tolerated procedure: Patient tolerated procedure well Assessment/Plan Active Problems Bilateral lower extremity edema (Acute) Lower extremity ulceration (Acute) Bilateral Obesity (Acute) Diabetic ulcer of right foot (Acute) negro 2 Diabetic ulcer of left foot (Acute) negro 1 Assessment: see above diagnoses Plan: The patient was seen and examined at the wound center today and was updated on the plan of care. A subcutaneous debridement was performed today and the patient tolerated well. The patients wound care will consist of: Application of pure apply a.m #1 was applied today and secured with Adaptic touch and Steri-Strips. Loose 3M's for compression, will consider TCC for offloading of the right foot as patient only has mild arterial occlusive disease. Patient was educated on offloading mechanisms and a referral to podiatry was placed. 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 Vultures from prior showed staph, strep, anaerobic cocci and patient is tolerating Augmentin well. Baseline bloodwork pending. Vascular studies reviewed and showed left DANIKA of 0.76 and right DANIKA of 0.82 with mild and moderate arterial occlusive disease, instructed patient to follow-up with his vascular specialist. We will also request prior records from his vascular surgeon for continuity of care. Patient educated on the importance of diet on wound healing and instructed to increase protein and vitamin C intake. Patient verbalized understanding. Patient will follow up at wound healing center in one week or sooner if needed. This note was generated with [employer] software. It may contain incorrect words, spelling, and punctuation that were not noted in checking the note before signing. Code Visit 150xxx-152xx: 96331 Skin sub graft trnk/arm/leg
[2019-02-27 13:44] VITALS: BP 143/49; PULSE 84; RESP 20; TEMP 37; BMI 76.8
--- NOTE | 2019-02-27 20:33 | PCM.WC.PN ---
(1) Diabetic ulcer of right foot Status: Acute Qualifiers: Code(s): E11.621 - Type 2 diabetes mellitus with foot ulcer; L97.519 - Non-pressure chronic ulcer of other part of right foot with unspecified severity Comment: barraza 2 (2) Diabetic ulcer of left foot Status: Acute Qualifiers: Code(s): E11.621 - Type 2 diabetes mellitus with foot ulcer; L97.529 - Non-pressure chronic ulcer of other part of left foot with unspecified severity Comment: barraza 1 (3) Bilateral lower extremity edema Status: Acute Code(s): R60.0 - Localized edema (4) Lower extremity ulceration Status: Acute Code(s): L97.909 - Non-pressure chronic ulcer of unspecified part of unspecified lower leg with unspecified severity Comment: Bilateral (5) Obesity Status: Acute Code(s): E66.9 - Obesity, unspecified (6) PAD (peripheral artery disease) Status: Acute Code(s): I73.9 - Peripheral vascular disease, unspecified (7) Tobacco abuse Status: Acute Code(s): Z72.0 - Tobacco use (8) Venous insufficiency Status: Acute Code(s): I87.2 - Venous insufficiency (chronic) (peripheral) (9) HTN (hypertension) Status: Chronic Code(s): I10 - Essential (primary) hypertension Type of Wound Date of Service: 02/27/19 Chief Complaint: Superficial lower extremity ulcers and swelling, diabetic foot ulcers left and right History of Wound: Shayan is a pleasant 73-year-old male who presents today with complaint of bilateral superficial lower leg ulcers and edema. Patient is managed by Kathleen Guaman(?), a primary care provider in [place], [place]. Significant past medical history includes a 60+ pack year history of smoking tobacco, cardiovascular disease with cardiac stenting times 3 (?), peripheral vascular disease of bilateral lower extremities, and rzw-xqhjqnt-dyzoueeyd diabetes. He has seen a vascular surgeon, Minesh Jeong, for placement of stents in legs. He is unsure if he has had stenting in 1 or both of his lower extremities. He reports his last leg stenting occurred about 4 years ago. He reports he has been dealing with the superficial ulcerations and swelling in his bilateral lower extremities for the past year. He previously saw Dr. Craven, a golf course ranger, but it was felt that they had reached a plateau with treatment. He then began seeing Dr. Craig, a bottom liner, who was treating his legs with urea cream. He states he has been using this for about 3 to 4 months, as well as applying compression to bilateral lower extremities with Kerlix and Coban. Per patient, he reports he was discharged from Dr. Craig due to his current smoking status. He is unsure if there has been any improvement in the swelling and ulcerations of his legs with this treatment. At this time, patient has no open wounds requiring debridement. He does have weeping from bilateral lower extremities. He reports he has used Unna boots in the past with good efficacy. Denies any fever, chills, nausea, vomiting, diarrhea, purulent or foul-smelling drainage, or red, streaking rash. He denies any history of DVT. He is currently on Plavix and aspirin for maintenance of cardiac stents. Progress of Wound: Patient's superficial ulcerations on bilateral lower extremities have improved dramatically with the application of Unna boots which he tolerated well. regarding his bilateral DFU's, size appears stable and wound beds are beefy red without any foul smell this week. Cultures were reviewed from last week and positive for staph, strep, and anaerobic cocci and patient was started on Augmentin which he is tolerating. His blood work is still pending. His vascular's were reviewed and demonstrated a left DANIKA of 0.76 and right DANIKA of 0.82 with moderate and mild arterial occlusive disease and patient was instructed to follow-up with his vascular specialist. He denies any systemic signs of infection. He still is not utilizing postop offloading shoes which was recommended previously. The patient otherwise denies any fever, chills, nausea, vomiting, shortness of breath, chest pain or pressure, palpitations, orthopnea, lower extremity edema, syncope or presyncopal episodes. Will consult podiatry given the location of the wounds. - Physical Exam Vital Signs Temp Pulse Resp BP 98.6 F 84 20 H 143/49 H 02/27/19 13:44 02/27/19 13:44 02/27/19 13:44 02/27/19 13:44 General: Alert, Oriented x3, Cooperative, No apparent distress HEENT: Atraumatic Oral: Moist Mucosa Lungs: Clear to auscultation, Normal air movement Cardiovascular: Regular rate, Regular Rhythm Abdomen: Soft, Non Tender Extremities: No clubbing, No cyanosis, Edema - generalized bilateral lower extremity swelling with chronic venous changes present Skin: Ulcer/ Wound - DFUs with callused wound edges and adherant slough to wound bed, no signs of obvious infection at this time, Excoriated Neurological: Neuro grossly intact Psych/Mental Status: Normal Affect, Appropriate, Alert and oriented to time, place, person, mood and affect Debridement Note Post-Debridement Measurements/Treatment WC - Nurse 2 - General Ulcer CM Notes Start: 02/20/19 14:56 Freq: Status: Active Protocol: Activity Type Activity Date Activity User E-Sign Co-Sign Detail Recorded Client Recorded Date Recorded By Document 02/20/19 15:44 AN [id number] 02/20/19 16:00 AN Document 02/27/19 14:36 AN [id number] 02/27/19 14:41 AN 02/20/19 02/27/19 15:44 14:36 Wound Center Nurse 2 #4 RIGHT PLANTAR DFU -Time 15:45 14:37 -Correct Patient Yes Yes -Correct Side, Site, Position Yes Yes -Correct Procedure Yes Yes -Procedure Performed Yes Yes -Type of Procedure Debridement Debridement -Clinical Debridement Subcutaneous Subcutaneous -Post Debridement Size (cm) - Length 1.3 0.9 -Post Debridement Size (cm) - Width 1.0 0.9 -Post Debridement Size (cm) - Depth 0.5 0.8 -Total Square Cm 1.30 0.81 -Wound/Ulcer Outcome Not Healed Not Healed -Bioengineered Tissue Yes Yes -Type of bioengineered Tissue [id number] -Treatment Response Procedure Tolerated Well #3- L LAT PLANTAR FOOT -Time 15:45 14:37 -Correct Patient Yes Yes -Correct Side, Site, Position Yes Yes -Correct Procedure Yes Yes -Procedure Performed Yes Yes -Type of Procedure Debridement Debridement -Clinical Debridement Subcutaneous Subcutaneous -Post Debridement Size (cm) - Length 1.7 1.5 -Post Debridement Size (cm) - Width 1.5 1.2 -Post Debridement Size (cm) - Depth 0.2 0.2 -Total Square Cm 2.55 1.80 -Wound/Ulcer Outcome Not Healed Not Healed -Ulcer Cleansing Rinsed/ Irrigated with Saline -Bioengineered Tissue Yes Yes -Type of bioengineered Tissue [id number] -Bleeding Controlled with Pressure Pressure -Treatment Response Procedure Procedure Tolerated Well Tolerated Well Pain Scale: 0-10 Numeric Is Patient Pain Free? Yes Yes Wound debrided: right DFU barraza 2 Laterality: Right Type of Debridement: Excisional debridement Anesthesia Used: 5% Lidocaine Gel Depth: in the subcutaneous layer Percentage of wound debrided: 100 Instrument Used: 3mm curette, #11 blade Tissue Removed: callus, slough and devitalized tissue Severity: Fat Layer Exposed Amount of bleeding with debridement: Mild Bleeding Controlled with: Pressure Patient tolerated procedure well - Additional Wound Wound debrided: left DFU barraza 2 Type of Debridement: Excisional debridement Anesthesia Used: 5% Lidocaine Gel Depth: in the subcutaneous layer Percentage of wound debrided: 100 Instrument Used: 3mm curette Tissue Removed: slough and devitalized tissue Severity: Fat Layer Exposed Amount of bleeding with debridement: Mild Bleeding Controlled with: Pressure Patient tolerated procedure: Patient tolerated procedure well Assessment/Plan Assessment: see above diagnoses Plan: The patient was seen and examined at the wound center today and was updated on the plan of care. A subcutaneous debridement was performed today and the patient tolerated well. The patients wound care will consist of: Application of purapply a.m #2 was applied today and secured with Adaptic touch and Steri-Strips. Bilateral unna boots for compression, will consider TCC for offloading at later time. Will refer to podiatry for consult. Patient was educated on offloading mechanisms and a referral to podiatry was placed. 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 Cultures from prior showed staph, strep, anaerobic cocci and patient is tolerating Augmentin well. Baseline bloodwork pending. Vascular studies reviewed and showed left DANIKA of 0.76 and right DANIKA of 0.82 with mild and moderate arterial occlusive disease, instructed patient to follow-up with his vascular specialist. We will also request prior records from his vascular surgeon for continuity of care. Patient educated on the importance of diet on wound healing and instructed to increase protein and vitamin C intake. Patient verbalized understanding. Patient will follow up at wound healing center in one week or sooner if needed. This note was generated with [employer] software. It may contain incorrect words, spelling, and punctuation that were not noted in checking the note before signing. Code Visit 150xxx-[id number]: [id number] Skin sub graft trnk/arm/leg
[2019-03-03 08:11] VITALS: TEMP 36.2; BMI 76.8
[2019-03-05 09:22] VITALS: BP 146/61; PULSE 76; RESP 20; TEMP 36.2; BMI 76.8
--- NOTE | 2019-03-05 10:07 | PN.PCM_ITS ---
(1) Non-pressure chronic ulcer of other part of right foot with fat layer exposed Status: Chronic Current Visit: Yes Code(s): L97.512 - Non-pressure chronic ulcer of other part of right foot with fat layer exposed (2) Non-pressure chronic ulcer of other part of left foot with fat layer exposed Status: Chronic Current Visit: Yes Code(s): L97.522 - Non-pressure chronic ulcer of other part of left foot with fat layer exposed (3) Delayed wound healing Status: Chronic Current Visit: Yes Code(s): T14.8XXD - Other injury of unspecified body region, subsequent encounter (4) Malnutrition Status: Suspected Current Visit: Yes Code(s): E46 - Unspecified protein- calorie malnutrition (5) Bilateral lower extremity edema Status: Acute Current Visit: Yes Code(s): R60.0 - Localized edema (6) PAD (peripheral artery disease) Status: Chronic Current Visit: Yes Code(s): I73.9 - Peripheral vascular disease, unspecified (7) T2DM (type 2 diabetes mellitus) Status: Chronic Current Visit: Yes Code(s): E11.9 - Type 2 diabetes mellitus without complications (8) Tobacco abuse Status: Acute Current Visit: Yes Code(s): Z72.0 - Tobacco use (9) Venous insufficiency Status: Acute Current Visit: Yes Code(s): I87.2 - Venous insufficiency (chronic) (peripheral) Type of Wound Date of Service: 03/05/19 Chief Complaint: Right and left foot ulcers History of Wound: Shayan is a pleasant 73-year-old male who presents today with complaint of bilateral superficial lower leg ulcers and edema. Significant past medical history includes a 60+ pack year history of smoking tobacco, cardiovascular disease with cardiac stenting, peripheral vascular disease of bilateral lower extremities, and [id number] diabetes. He has seen a vascular surgeon, Minesh Jeong, for placement of stents in legs. He continues to follow-up as advised. Denies any fever, chills, nausea, vomiting, diarrhea, purulent, or redness. He is currently on Plavix and aspirin for maintenance of cardiac stents. He relates he does have a surgical offloading shoes at home however has not been wearing these. He denies nutritional supplementation use. He is referred by nurse practitioner Sly March. He has been having a unna boots and pure apply applied. Progress of Wound: Stable - Physical Exam Vital Signs Temp Pulse Resp BP 97.1 F L 76 20 H 146/61 H 03/05/19 09:22 03/05/19 09:22 03/05/19 09:22 03/05/19 09:22 General: Alert, Oriented x3, Cooperative, No apparent distress Extremities: No cyanosis, Capillary Refill Less than 3 Seconds, No Calf Tenderness, Diminished Peripheral Pulses, Edema Skin: Ulcer/ Wound - No purulence, erythema, string, odor, infection, deep tissue exposure, necrosis or maceration. Peripheral skin is hairless, atrophic, hyperpigmented and with skin peeling. No ulcers noted to the legs. Wound Measurements and Assessment WC - Nurse 1 - General Ulcer Measurement Start: 02/20/19 14:56 Freq: Status: Active Protocol: Activity Type Activity Date Activity User E-Sign Co-Sign Detail Recorded Client Recorded Date Recorded By Document 03/03/19 08:11 DL [id number] 03/03/19 08:16 DL Document 03/05/19 09:22 DL [id number] 03/05/19 09:34 DL 03/03/19 03/05/19 08:11 09:22 Wound Center Nurse 1 [Ulcer Assessment] #4 RIGHT PLANTAR DFU -Current Size (cm) - Length 0.8 -Current Size (cm) - Width 0.8 -Current Size (cm) - Depth 0.5 -Total Square Cm 0.64 -Photo Taken No -Exudate Amt Large None Present -Exudate Type Yellow/Green -Wound Margin Thickened -Granulation Amt Small (1-33%) -Granulation Quality Sehili -Necrosis Amt Large (67-100%) -Necrotic Tissue Type Adherent Slough -Structure Exposed N/A -Texture (Snow-wound Skin Appearance) No Abnormality Callus -Moisture (Snow-wound Skin Appearance No Abnormality Dry/Scaly ) -Color (Snow-wound Skin Appearance) No Abnormality Hemosiderin Staining -Temperature (Snow-wound Skin No Abnormality No Abnormality Appearance) (Pt Warm) (Pt Warm) -Tenderness on Palpation (Snow-wound No Skin Appearance) -Ulcer Cleansing Wound Cleanser Wound Cleanser -Foul Odor after Cleansing No No -Anesthetic Used 5% Lidocaine Gel #3- L LAT PLANTAR FOOT -Current Size (cm) - Length 0.9 -Current Size (cm) - Width 1.1 -Current Size (cm) - Depth 0.1 -Total Square Cm 0.99 -Photo Taken No -Exudate Amt Large None Present -Exudate Type Yellow/Green -Wound Margin Distinct, Outline Attached -Granulation Amt Medium (34-66%) -Granulation Quality Pale,Sehili -Necrosis Amt Medium (34-66%) -Necrotic Tissue Type Adherent Slough -Structure Exposed N/A -Texture (Snow-wound Skin Appearance) No Abnormality Callus -Moisture (Snow-wound Skin Appearance No Abnormality Dry/Scaly ) -Color (Snow-wound Skin Appearance) No Abnormality Hemosiderin Staining -Temperature (Snow-wound Skin No Abnormality No Abnormality Appearance) (Pt Warm) (Pt Warm) -Tenderness on Palpation (Snow-wound No No Skin Appearance) -Ulcer Cleansing Wound Cleanser Wound Cleanser -Foul Odor after Cleansing No No -Anesthetic Used 5% Lidocaine Gel [Edema Assessment] -Right Calf (cm) 36.8 -Right Ankle (cm) 25 -Left Calf (cm) 39 -Left Ankle (cm) 25.1 Musculoskeletal: No Tenderness to Palpation of Joints or Extremities, Muscle Wasting Neurological: - - Lack of epicritic sensation light touch bilateral lower extremities Psych/Mental Status: Normal Affect, Appropriate Debridement Note Post-Debridement Measurements/Treatment WC - Nurse 2 - General Ulcer CM Notes Start: 02/20/19 14:56 Freq: Status: Active Protocol: Activity Type Activity Date Activity User E-Sign Co-Sign Detail Recorded Client Recorded Date Recorded By Document 02/20/19 15:44 AN [id number] 02/20/19 16:00 AN Document 02/27/19 14:36 AN [id number] 02/27/19 14:41 AN 02/20/19 02/27/19 15:44 14:36 Wound Center Nurse 2 #4 RIGHT PLANTAR DFU -Time 15:45 14:37 -Correct Patient Yes Yes -Correct Side, Site, Position Yes Yes -Correct Procedure Yes Yes -Procedure Performed Yes Yes -Type of Procedure Debridement Debridement -Clinical Debridement Subcutaneous Subcutaneous -Post Debridement Size (cm) - Length 1.3 0.9 -Post Debridement Size (cm) - Width 1.0 0.9 -Post Debridement Size (cm) - Depth 0.5 0.8 -Total Square Cm 1.30 0.81 -Wound/Ulcer Outcome Not Healed Not Healed -Bioengineered Tissue Yes Yes -Type of bioengineered Tissue [id number] -Treatment Response Procedure Tolerated Well #3- L LAT PLANTAR FOOT -Time 15:45 14:37 -Correct Patient Yes Yes -Correct Side, Site, Position Yes Yes -Correct Procedure Yes Yes -Procedure Performed Yes Yes -Type of Procedure Debridement Debridement -Clinical Debridement Subcutaneous Subcutaneous -Post Debridement Size (cm) - Length 1.7 1.5 -Post Debridement Size (cm) - Width 1.5 1.2 -Post Debridement Size (cm) - Depth 0.2 0.2 -Total Square Cm 2.55 1.80 -Wound/Ulcer Outcome Not Healed Not Healed -Ulcer Cleansing Rinsed/ Irrigated with Saline -Bioengineered Tissue Yes Yes -Type of bioengineered Tissue [id number] -Bleeding Controlled with Pressure Pressure -Treatment Response Procedure Procedure Tolerated Well Tolerated Well Pain Scale: 0-10 Numeric Is Patient Pain Free? Yes Yes Wound debrided: plantar lateral foot Laterality: Right Wound Grade/Stage: grade 1 Type of Debridement: Excisional debridement Anesthesia Used: 5% Lidocaine Gel Depth: in the subcutaneous layer Percentage of wound debrided: 100 Instrument Used: #15 blade Tissue Removed: fibrous, devitalized subcutaneous, biofilm, slough Severity: Fat Layer Exposed Amount of bleeding with debridement: Mild Bleeding Controlled with: Pressure Patient tolerated procedure well - Additional Wound Wound debrided: plantar lateral foot Laterality: Left Wound Grade/Stage: grade 1 Type of Debridement: Excisional debridement Anesthesia Used: 5% Lidocaine Gel Depth: in the subcutaneous layer Percentage of wound debrided: 100 Instrument Used: #15 blade Tissue Removed: fibrous, devitalized subcutaneous, biofilm, slough Severity: Fat Layer Exposed Amount of bleeding with debridement: Mild Bleeding Controlled with: Pressure Patient tolerated procedure: Patient tolerated procedure well Assessment/Plan Active Problems Bilateral lower extremity edema (Acute) PAD (peripheral artery disease) (Chronic) T2DM (type 2 diabetes mellitus) (Chronic) Tobacco abuse (Acute) Venous insufficiency (Acute) Non-pressure chronic ulcer of other part of right foot with fat layer exposed (Chronic) Non-pressure chronic ulcer of other part of left foot with fat layer exposed (Chronic) Delayed wound healing (Chronic) Assessment: see above diagnoses Plan: The patient was seen and examined at the wound center today and was updated on the plan of care. A subcutaneous excisional debridement was performed today and the patient tolerated well to bilateral foot. The patients wound care will consist of: Application of purapply a.m #2 was applied today and secured with a wound veil and Steri-Strips. This was applied to bilateral foot sites. The indication purpose was discussed and he understands anticipated healing time and management. Bilateral unna boots for compression and he seems to be doing well with this plan so far. These were reapplied today and he will return on Sunday for nurse visit to change the overlying wounds. Patient was educated on offloading mechanisms and a referral to podiatry was placed. I recommended bilateral surgical shoes with offloading dual density Plastizote li ners with pockets cut out around the ulcer sites. He relates he has these at home already and will bring them to clinic for modification next week. Cultures from prior showed staph, strep, anaerobic cocci and patient tolerated Augmentin well. There are no local or systemic signs of illness today and I do not recommend a any new antibiotic prescriptions at this time. Vascular studies reviewed and showed left DANIKA of 0.76 and right DANIKA of 0.82 with mild and moderate arterial occlusive disease, instructed patient to follow-up with his vascular specialist. We will also request prior records from his vascular surgeon for continuity of care. 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 Patient educated on the importance of diet on wound healing and instructed to increase protein and vitamin C intake. Patient verbalized understanding. Nutritional supplement, Nolan, was prescribed and he was advised on proper use. This was prescribed to optimize healing. Baseline lab work is recommended including CBC and CMP. Smoking cessation was discussed and he demonstrates understanding that this will continue to impair his healing capabilities. Patient will follow up at wound healing center in one week or sooner if needed. I answered all his questions. To call sooner if he develops any new signs of infection or illness.
[2019-03-07 12:03] VITALS: BP 157/88; PULSE 81; RESP 16; TEMP 36.1; BMI 76.8
[2019-03-12 08:48] VITALS: BP 116/71; PULSE 79; RESP 18; TEMP 35.9; BMI 76.8
--- NOTE | 2019-03-12 11:42 | PN.PCM_ITS ---
(1) Non-pressure chronic ulcer of other part of right foot with fat layer exposed Status: Chronic Current Visit: Yes Code(s): L97.512 - Non-pressure chronic ulcer of other part of right foot with fat layer exposed (2) Non-pressure chronic ulcer of other part of left foot with fat layer exposed Status: Chronic Current Visit: Yes Code(s): L97.522 - Non-pressure chronic ulcer of other part of left foot with fat layer exposed (3) Delayed wound healing Status: Chronic Current Visit: Yes Code(s): T14.8XXD - Other injury of unspecified body region, subsequent encounter (4) Malnutrition Status: Suspected Current Visit: Yes Code(s): E46 - Unspecified protein- calorie malnutrition (5) Bilateral lower extremity edema Status: Acute Current Visit: Yes Code(s): R60.0 - Localized edema (6) PAD (peripheral artery disease) Status: Chronic Current Visit: Yes Code(s): I73.9 - Peripheral vascular disease, unspecified (7) T2DM (type 2 diabetes mellitus) Status: Chronic Current Visit: Yes Code(s): E11.9 - Type 2 diabetes mellitus without complications (8) Tobacco abuse Status: Acute Current Visit: Yes Code(s): Z72.0 - Tobacco use (9) Venous insufficiency Status: Acute Current Visit: Yes Code(s): I87.2 - Venous insufficiency (chronic) (peripheral) Type of Wound Date of Service: 03/13/19 Chief Complaint: Right and left foot ulcers History of Wound: Shayan is a pleasant 73-year-old male who presents today with complaint of bilateral superficial lower leg ulcers and edema. Significant past medical history includes a 60+ pack year history of smoking tobacco, cardiovascular disease with cardiac stenting, peripheral vascular disease of bilateral lower extremities, and elo-[id number]-[id number] diabetes. He has seen a vascular surgeon, Minesh Jeong, for placement of stents in legs. He continues to follow-up as advised. Denies any fever, chills, nausea, vomiting, diarrhea, purulent, or redness. He is currently on Plavix and aspirin for maintenance of cardiac stents. He relates he does have a surgical offloading shoes at home however has not been wearing these. He denies nutritional supplementation use. He is referred by nurse practitioner Sly March. He has been having a unna boots and puraply advanced product applied. Progress of Wound: Improving - Physical Exam Vital Signs Temp Pulse Resp BP 96.6 F L 79 18 116/71 03/12/19 08:48 03/12/19 08:48 03/12/19 08:48 03/12/19 08:48 General: Alert, Oriented x3, Cooperative, No apparent distress Extremities: No cyanosis, Capillary Refill Less than 3 Seconds, No Calf Tenderness - Negative Vikki and Mason sign bilateral. Compartment soft to palpate bilateral, Diminished Peripheral Pulses, Edema - Bilateral lower extremities with skin scaling, chronic changes, and hyperpigmentation Skin: Ulcer/ Wound - No purulence, erythema, streaking, odor, infection. Peripheral skin is hairless and atrophic., - - Toenails x10 are long, thick, dystrophic, and with subungual debris and incurvation to all borders Wound Measurements and Assessment WC - Nurse 1 - General Ulcer Measurement Start: 02/20/19 14:56 Freq: Status: Active Protocol: Activity Type Activity Date Activity User E-Sign Co-Sign Detail Recorded Client Recorded Date Recorded By Document 03/12/19 08:48 MW [id number] 03/12/19 09:12 MW 03/12/19 08:48 Wound Center Nurse 1 [Ulcer Assessment] #4 RIGHT PLANTAR DFU -Combined with other wound No -Current Size (cm) - Length 0.9 -Current Size (cm) - Width 0.7 -Current Size (cm) - Depth 0.1 -Total Square Cm 0.63 -Photo Taken No -Epithelialization None Present -Tunneling No -Undermining/Tunneling No -Circular Undermining No -Exudate Amt Medium -Exudate Type Yellow/Green -Wound Margin Flat & Intact -Granulation Amt Small (1-33%) -Granulation Quality Red -Slough/Fibrin Yes -Necrosis Amt Medium (34-66%) -Necrotic Tissue Type Adherent Slough -Structure Exposed N/A -Texture (Snow-wound Skin Appearance) Assessed, Localized Edema ,Scarring -Moisture (Snow-wound Skin Appearance Assessed,Dry/ ) Scaly -Color (Snow-wound Skin Appearance) No Abnormality, Assessed -Temperature (Snow-wound Skin No Abnormality Appearance) (Pt Warm) -Ulcer Cleansing soap and water -Foul Odor after Cleansing No -Anesthetic Used 5% Lidocaine Gel #3- L LAT PLANTAR FOOT -Combined with other wound No -Current Size (cm) - Length 1.1 -Current Size (cm) - Width 1.4 -Current Size (cm) - Depth 0.1 -Total Square Cm 1.54 -Photo Taken No -Epithelialization None Present -Tunneling No -Undermining/Tunneling No -Circular Undermining No -Exudate Amt Medium -Exudate Type Yellow/Green -Wound Margin Flat & Intact -Granulation Amt Small (1-33%) -Granulation Quality N/A,Pale -Slough/Fibrin Yes -Necrosis Amt Medium (34-66%) -Necrotic Tissue Type Adherent Slough -Structure Exposed N/A -Texture (Snow-wound Skin Appearance) Assessed, Localized Edema ,Scarring -Moisture (Snow-wound Skin Appearance Assessed,Dry/ ) Scaly -Color (Snow-wound Skin Appearance) No Abnormality, Assessed -Temperature (Snow-wound Skin No Abnormality Appearance) (Pt Warm) -Tenderness on Palpation (Snow-wound No Skin Appearance) -Ulcer Cleansing soap and water -Foul Odor after Cleansing No -Anesthetic Used 5% Lidocaine Gel [Edema Assessment] -Lower Limb Edema Present Yes -Right Calf (cm) 36.9 -Right Ankle (cm) 25.0 -Left Calf (cm) 39.0 -Left Ankle (cm) 29.5 WC - Nurse 2 - General Ulcer CM Notes Start: 02/20/19 14:56 Freq: Status: Active Protocol: Activity Type Activity Date Activity User E-Sign Co-Sign Detail Recorded Client Recorded Date Recorded By Document 03/12/19 09:31 AN [id number] 03/12/19 09:35 AN 03/12/19 09:31 Wound Center Nurse 2 [Procedure/Treatment] #4 RIGHT PLANTAR DFU -Time 09:34 -Correct Patient Yes -Correct Side, Site, Position Yes -Correct Procedure Yes -Procedure Performed Yes -Type of Procedure Debridement -Clinical Debridement Subcutaneous -Post Debridement Size (cm) - Length 1.0 -Post Debridement Size (cm) - Width 0.8 -Post Debridement Size (cm) - Depth 0.1 -Total Square Cm 0.80 -Wound/Ulcer Outcome Not Healed -Bleeding Controlled with Pressure #3- L LAT PLANTAR FOOT -Time 09:35 -Correct Patient Yes -Correct Side, Site, Position Yes -Correct Procedure Yes -Procedure Performed Yes -Type of Procedure Debridement -Clinical Debridement Subcutaneous -Post Debridement Size (cm) - Length 1.2 -Post Debridement Size (cm) - Width 1.5 -Post Debridement Size (cm) - Depth 0.1 -Total Square Cm 1.80 -Wound/Ulcer Outcome Not Healed -Bleeding Controlled with Pressure [See Physician Procedure note for Specifics] Pain Scale: 0-10 Numeric [Pain] -Is Patient Pain Free? Yes Musculoskeletal: No Tenderness to Palpation of Joints or Extremities, Muscle Wasting, - - Dorsal contraction of lesser digits and prominent metatarsal heads Neurological: - - Lack of normal epicritic sensation light touch Psych/Mental Status: Normal Affect, Appropriate Debridement Note Post-Debridement Measurements/Treatment WC - Nurse 2 - General Ulcer CM Notes Start: 02/20/19 14:56 Freq: Status: Active Protocol: Activity Type Activity Date Activity User E-Sign Co-Sign Detail Recorded Client Recorded Date Recorded By Document 02/20/19 15:44 AN [id number] 02/20/19 16:00 AN Document 02/27/19 14:36 AN [id number] 02/27/19 14:41 AN Document 03/05/19 09:58 AN [id number] 03/05/19 10:09 AN Document 03/12/19 09:31 AN [id number] 03/12/19 09:35 AN 02/20/19 02/27/19 03/05/19 15:44 14:36 09:58 Wound Center Nurse 2 #4 RIGHT PLANTAR DFU -Time 15:45 14:37 10:07 -Correct Patient Yes Yes Yes -Correct Side, Site, Position Yes Yes Yes -Correct Procedure Yes Yes Yes -Procedure Performed Yes Yes Yes -Type of Procedure Debridement Debridement Debridement -Clinical Debridement Subcutaneous Subcutaneous Subcutaneous -Post Debridement Size (cm) - Length 1.3 0.9 0.9 -Post Debridement Size (cm) - Width 1.0 0.9 0.9 -Post Debridement Size (cm) - Depth 0.5 0.8 0.5 -Total Square Cm 1.30 0.81 0.81 -Wound/Ulcer Outcome Not Healed Not Healed Not Healed -Ulcer Cleansing Rinsed/ Irrigated with Saline -Foul Odor after Cleansing No -Bioengineered Tissue Yes Yes Yes -Type of bioengineered Tissue [id number] -Bleeding Controlled with Pressure -Offloading No -Treatment Response Procedure Procedure Tolerated Well Tolerated Well #3- L LAT PLANTAR FOOT -Time 15:45 14:37 10:08 -Correct Patient Yes Yes Yes -Correct Side, Site, Position Yes Yes Yes -Correct Procedure Yes Yes Yes -Procedure Performed Yes Yes Yes -Type of Procedure Debridement Debridement Debridement -Clinical Debridement Subcutaneous Subcutaneous Subcutaneous -Post Debridement Size (cm) - Length 1.7 1.5 1.2 -Post Debridement Size (cm) - Width 1.5 1.2 0.2 -Post Debridement Size (cm) - Depth 0.2 0.2 0.1 -Total Square Cm 2.55 1.80 0.24 -Wound/Ulcer Outcome Not Healed Not Healed Not Healed -Ulcer Cleansing Rinsed/ Rinsed/ Irrigated with Irrigated with Saline Saline -Bioengineered Tissue Yes Yes -Type of bioengineered Tissue [id number] -Bleeding Controlled with Pressure Pressure Pressure -Offloading Yes -Treatment Response Procedure Procedure Procedure Tolerated Well Tolerated Well Tolerated Well Pain Scale: 0-10 Numeric Is Patient Pain Free? Yes Yes Yes 03/12/19 09:31 Wound Center Nurse 2 #4 RIGHT PLANTAR DFU -Time 09:34 -Correct Patient Yes -Correct Side, Site, Position Yes -Correct Procedure Yes -Procedure Performed Yes -Type of Procedure Debridement -Clinical Debridement Subcutaneous -Post Debridement Size (cm) - Length 1.0 -Post Debridement Size (cm) - Width 0.8 -Post Debridement Size (cm) - Depth 0.1 -Total Square Cm 0.80 -Wound/Ulcer Outcome Not Healed -Ulcer Cleansing -Foul Odor after Cleansing -Bioengineered Tissue -Type of bioengineered Tissue -Bleeding Controlled with Pressure -Offloading -Treatment Response #3- L LAT PLANTAR FOOT -Time 09:35 -Correct Patient Yes -Correct Side, Site, Position Yes -Correct Procedure Yes -Procedure Performed Yes -Type of Procedure Debridement -Clinical Debridement Subcutaneous -Post Debridement Size (cm) - Length 1.2 -Post Debridement Size (cm) - Width 1.5 -Post Debridement Size (cm) - Depth 0.1 -Total Square Cm 1.80 -Wound/Ulcer Outcome Not Healed -Ulcer Cleansing -Bioengineered Tissue -Type of bioengineered Tissue -Bleeding Controlled with Pressure -Offloading -Treatment Response Pain Scale: 0-10 Numeric Is Patient Pain Free? Yes Wound debrided: sub 5th metatarsal head Laterality: Right Wound Grade/Stage: grade 1 Type of Debridement: Excisional debridement Anesthesia Used: 5% Lidocaine Gel Depth: in the subcutaneous layer Percentage of wound debrided: 100 Instrument Used: #15 blade Tissue Removed: fibrous, devitalized subcutaneous, biofilm, slough Severity: Fat Layer Exposed Amount of bleeding with debridement: Mild Bleeding Controlled with: Pressure Patient tolerated procedure well - Additional Wound Wound debrided: sub 5th metatarsal head Laterality: Left Wound Grade/Stage: grade 1 Type of Debridement: Excisional debridement Anesthesia Used: 5% Lidocaine Gel Depth: in the subcutaneous layer Percentage of wound debrided: 100 Instrument Used: #15 blade Tissue Removed: fibrous, devitalized subcutaneous, biofilm, slough Amount of bleeding with debridement: Mild Bleeding Controlled with: Pressure Patient tolerated procedure: Patient tolerated procedure well Assessment/Plan Active Problems Bilateral lower extremity edema (Acute) PAD (peripheral artery disease) (Chronic) T2DM (type 2 diabetes mellitus) (Chronic) Tobacco abuse (Acute) Venous insufficiency (Acute) Non-pressure chronic ulcer of other part of right foot with fat layer exposed (Chronic) Non-pressure chronic ulcer of other part of left foot with fat layer exposed (Chronic) Delayed wound healing (Chronic) Assessment: see above diagnoses Plan: The patient was seen and examined at the wound center today and was updated on the plan of care. A subcutaneous excisional debridement was performed today and the patient tolerated well to bilateral foot. The patients wound care will consist of: Application of purapply a.m #3 was applied today and secured with a wound veil and Steri-Strips. This was applied to bilateral foot sites. The indication purpose was discussed and he understands anticipated healing time and management. Bilateral unna boots for compression and he seems to be doing well with this plan so far. These were reapplied today and he will return on Sunday for nurse visit to change the overlying wounds. Patient was educated on offloading mechanisms and a referral to podiatry was placed. I recommended bilateral surgical shoes with offloading dual density Plastizote liners with pockets cut out around the ulcer sites. He could not find these devices at home as previously discussed and plans to go to the foot and ankle center tomorrow to get fitted for these devices. He also plans to follow-up at the foot and ankle center tomorrow for nail debridement. He does not feel safe from his nails on his own. This was recommended for safety. Cultures from prior showed staph, strep, anaerobic cocci and patient tolerated Augmentin well. There are no local or systemic signs of illness today and I do not recommend a any new antibiotic prescriptions at this time. Vascular studies reviewed and showed left DANIKA of 0.76 and right DANIKA of 0.82 with mild and moderate arterial occlusive disease, instructed patient to follow-up with his vascular specialist. We will also request prior records from his vascular surgeon for continuity of care. 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 Patient educated on the importance of diet on wound healing and instructed to increase protein and vitamin C intake. Patient verbalized understanding. Nutritional supplement, Nolan, was prescribed and he was advised on proper use. This was prescribed to optimize healing. Baseline lab work is recommended including CBC and CMP. An updated order was provided today he was advised to get this completed. Smoking cessation was discussed and he demonstrates understanding that this will continue to impair his healing capabilities. Patient will follow up at wound healing center in one week or sooner if needed. I answered all his questions. To call sooner if he develops any new signs of infection or illness.
[2019-03-17 15:38] VITALS: BP 149/68; PULSE 87; RESP 20; TEMP 36.8; BMI 76.8
[2019-03-19 10:23] VITALS: RESP 20; TEMP 36.1; BMI 76.8
--- NOTE | 2019-03-19 11:53 | PN.PCM_ITS ---
(1) Non-pressure chronic ulcer of other part of right foot with fat layer exposed Status: Chronic Code(s): L97.512 - Non-pressure chronic ulcer of other part of right foot with fat layer exposed (2) Non-pressure chronic ulcer of other part of left foot with fat layer exposed Status: Chronic Code(s): L97.522 - Non-pressure chronic ulcer of other part of left foot with fat layer exposed (3) Delayed wound healing Status: Chronic Code(s): T14.8XXD - Other injury of unspecified body region, subsequent encounter (4) Malnutrition Status: Suspected Code(s): E46 - Unspecified protein-calorie malnutrition (5) Bilateral lower extremity edema Status: Acute Code(s): R60.0 - Localized edema (6) PAD (peripheral artery disease) Status: Chronic Code(s): I73.9 - Peripheral vascular disease, unspecified (7) Tobacco abuse Status: Acute Code(s): Z72.0 - Tobacco use (8) Venous insufficiency Status: Acute Code(s): I87.2 - Venous insufficiency (chronic) (peripheral) (9) Type 2 diabetes mellitus with diabetic polyneuropathy Status: Chronic Code(s): E11.42 - Type 2 diabetes mellitus with diabetic polyneuropathy Type of Wound Date of Service: 03/19/19 Chief Complaint: Right and left foot ulcers History of Wound: Shayan is a pleasant 73-year-old male who presents today with complaint of bilateral superficial lower leg ulcers and edema. Significant past medical history includes a 60+ pack year history of smoking tobacco, cardiovascular disease with cardiac stenting, peripheral vascular disease of bilateral lower extremities, and [id number] diabetes. He has seen a vascular surgeon, Minesh Jeong, for placement of stents in legs. He continues to follow-up as advised. Denies any fever, chills, nausea, vomiting, diarrhea, purulent, or redness. He is currently on Plavix and aspirin for maintenance of cardiac stents. He does have bilateral surgical shoe with offloading pockets that he obtained [facility]; he is wearing these as advised. He denies nutritional supplementation use. He has been having a unna boots and puraply advanced product applied. Progress of Wound: Improving - Physical Exam Vital Signs Temp Pulse Resp BP 96.9 F L 87 20 H 149/68 H 03/19/19 10:23 03/17/19 15:38 03/19/19 10:23 03/17/19 15:38 General: Alert, Oriented x3, Cooperative, No apparent distress HEENT: Atraumatic Extremities: Capillary Refill Less than 3 Seconds, No Calf Tenderness - Negative Vikki and Mason signs, Diminished Peripheral Pulses, Edema Skin: Ulcer/ Wound - No purulence, erythema, streaking, odor, infection. Bilateral sub-fifth metatarsal head ulcer sites have decreased in size with peripheral epithelialization. The peripheral leg skin is atrophic, hairless, weeping, hyperpigmented and with chronic venous stasis changes. Wound Measurements and Assessment WC - Nurse 1 - General Ulcer Measurement Start: 02/20/19 14:56 Freq: Status: Active Protocol: Activity Type Activity Date Activity User E-Sign Co-Sign Detail Recorded Client Recorded Date Recorded By Document 03/17/19 15:38 MW [id number] 03/17/19 15:41 MW Document 03/19/19 10:23 BMF [id number] 03/19/19 10:40 BMF 03/17/19 03/19/19 15:38 10:23 [Ulcer Assessment] #4 RIGHT PLANTAR DFU -Combined with other wound No -Current Size (cm) - Length 0.3 -Current Size (cm) - Width 0.2 -Current Size (cm) - Depth 0.3 -Total Square Cm 0.06 -Photo Taken No -Epithelialization None Present -Tunneling No -Undermining/Tunneling No -Circular Undermining No -Exudate Amt None Present -Wound Margin Distinct, Outline Attached -Granulation Amt None Present (0 %) -Slough/Fibrin Yes -Necrosis Amt Large (67-100%) -Necrotic Tissue Type Adherent Slough -Texture (Snow-wound Skin Appearance) Callus,Scarring -Moisture (Snow-wound Skin Appearance Assessed,Dry/ ) Scaly -Color (Snow-wound Skin Appearance) Assessed -Temperature (Snow-wound Skin No Abnormality Appearance) (Pt Warm) -Tenderness on Palpation (Snow-wound No Skin Appearance) -Ulcer Cleansing SOAP AND WATER -Foul Odor after Cleansing No -Anesthetic Used 5% Lidocaine Gel #3- L LAT PLANTAR FOOT -Combined with other wound No -Current Size (cm) - Length 0.7 -Current Size (cm) - Width 1 -Current Size (cm) - Depth 0.2 -Total Square Cm 0.7 -Photo Taken No -Epithelialization None Present -Tunneling No -Undermining/Tunneling No -Circular Undermining No -Exudate Amt Small -Exudate Type Serous -Wound Margin Flat & Intact -Granulation Amt Medium (34-66%) -Granulation Quality Pale,Red -Slough/Fibrin Yes -Necrosis Amt Medium (34-66%) -Necrotic Tissue Type Adherent Slough -Texture (Snow-wound Skin Appearance) Assessed,Callus ,Scarring -Moisture (Snow-wound Skin Appearance Assessed,Dry/ ) Scaly -Color (Snow-wound Skin Appearance) Assessed -Temperature (Snow-wound Skin No Abnormality Appearance) (Pt Warm) -Tenderness on Palpation (Snow-wound No Skin Appearance) -Ulcer Cleansing SOAP AND WATER -Foul Odor after Cleansing No -Anesthetic Used 5% Lidocaine Gel Wound Center Nurse 1 [Edema Assessment] -Lower Limb Edema Present Yes Yes -Right Calf (cm) 36.5 36.1 -Right Ankle (cm) 25.0 25 -Left Calf (cm) 39.2 38.5 -Left Ankle (cm) 25.5 25.3 WC - Nurse 2 - General Ulcer CM Notes Start: 02/20/19 14:56 Freq: Status: Active Protocol: Activity Type Activity Date Activity User E-Sign Co-Sign Detail Recorded Client Recorded Date Recorded By Document 03/19/19 11:02 AN [id number] 03/19/19 11:05 AN 03/19/19 11:02 Wound Center Nurse 2 [Procedure/Treatment] #4 RIGHT PLANTAR DFU -Time 11:04 -Correct Patient Yes -Correct Side, Site, Position Yes -Correct Procedure Yes -Procedure Performed Yes -Type of Procedure Debridement -Clinical Debridement Subcutaneous -Post Debridement Size (cm) - Length 0.4 -Post Debridement Size (cm) - Width 0.3 -Post Debridement Size (cm) - Depth 0.3 -Total Square Cm 0.12 -Wound/Ulcer Outcome Not Healed -Ulcer Cleansing Rinsed/ Irrigated with Saline -Foul Odor after Cleansing No -Bioengineered Tissue Yes -Type of bioengineered Tissue [id number] -Bleeding Controlled with Pressure -Offloading Yes -Treatment Response Procedure Tolerated Well #3- L LAT PLANTAR FOOT -Time 11:05 -Correct Patient Yes -Correct Side, Site, Position Yes -Correct Procedure Yes -Procedure Performed Yes -Type of Procedure Debridement -Clinical Debridement Subcutaneous -Post Debridement Size (cm) - Length 0.8 -Post Debridement Size (cm) - Width 1.1 -Post Debridement Size (cm) - Depth 0.2 -Total Square Cm 0.88 -Wound/Ulcer Outcome Not Healed -Ulcer Cleansing Rinsed/ Irrigated with Saline -Foul Odor after Cleansing No -Bioengineered Tissue Yes -Type of bioengineered Tissue [id number] -Bleeding Controlled with NA -Offloading Yes -Treatment Response Procedure Tolerated Well [See Physician Procedure note for Specifics] Pain Scale: 0-10 Numeric [Pain] -Is Patient Pain Free? Yes Musculoskeletal: No Tenderness to Palpation of Joints or Extremities, Muscle Wasting Neurological: - - Lack of normal epicritic sensation light touch to ulcer site Psych/Mental Status: Normal Affect, Appropriate Debridement Note Post-Debridement Measurements/Treatment WC - Nurse 2 - General Ulcer CM Notes Start: 02/20/19 14:56 Freq: Status: Active Protocol: Activity Type Activity Date Activity User E-Sign Co-Sign Detail Recorded Client Recorded Date Recorded By Document 02/20/19 15:44 AN [id number] 02/20/19 16:00 AN Document 02/27/19 14:36 AN [id number] 02/27/19 14:41 AN Document 03/05/19 09:58 AN [id number] 03/05/19 10:09 AN Document 03/12/19 09:31 AN [id number] 03/12/19 09:35 AN Document 03/19/19 11:02 AN [id number] 03/19/19 11:05 AN 02/20/19 02/27/19 03/05/19 15:44 14:36 09:58 Wound Center Nurse 2 #4 RIGHT PLANTAR DFU -Time 15:45 14:37 10:07 -Correct Patient Yes Yes Yes -Correct Side, Site, Position Yes Yes Yes -Correct Procedure Yes Yes Yes -Procedure Performed Yes Yes Yes -Type of Procedure Debridement Debridement Debridement -Clinical Debridement Subcutaneous Subcutaneous Subcutaneous -Post Debridement Size (cm) - Length 1.3 0.9 0.9 -Post Debridement Size (cm) - Width 1.0 0.9 0.9 -Post Debridement Size (cm) - Depth 0.5 0.8 0.5 -Total Square Cm 1.30 0.81 0.81 -Wound/Ulcer Outcome Not Healed Not Healed Not Healed -Ulcer Cleansing Rinsed/ Irrigated with Saline -Foul Odor after Cleansing No -Bioengineered Tissue Yes Yes Yes -Type of bioengineered Tissue [id number] -Bleeding Controlled with Pressure -Offloading No -Treatment Response Procedure Procedure Tolerated Well Tolerated Well #3- L LAT PLANTAR FOOT -Time 15:45 14:37 10:08 -Correct Patient Yes Yes Yes -Correct Side, Site, Position Yes Yes Yes -Correct Procedure Yes Yes Yes -Procedure Performed Yes Yes Yes -Type of Procedure Debridement Debridement Debridement -Clinical Debridement Subcutaneous Subcutaneous Subcutaneous -Post Debridement Size (cm) - Length 1.7 1.5 1.2 -Post Debridement Size (cm) - Width 1.5 1.2 0.2 -Post Debridement Size (cm) - Depth 0.2 0.2 0.1 -Total Square Cm 2.55 1.80 0.24 -Wound/Ulcer Outcome Not Healed Not Healed Not Healed -Ulcer Cleansing Rinsed/ Rinsed/ Irrigated with Irrigated with Saline Saline -Foul Odor after Cleansing -Bioengineered Tissue Yes Yes -Type of bioengineered Tissue [id number] -Bleeding Controlled with Pressure Pressure Pressure -Offloading Yes -Treatment Response Procedure Procedure Procedure Tolerated Well Tolerated Well Tolerated Well Pain Scale: 0-10 Numeric Is Patient Pain Free? Yes Yes Yes 03/12/19 03/19/19 09:31 11:02 Wound Center Nurse 2 #4 RIGHT PLANTAR DFU -Time 09:34 11:04 -Correct Patient Yes Yes -Correct Side, Site, Position Yes Yes -Correct Procedure Yes Yes -Procedure Performed Yes Yes -Type of Procedure Debridement Debridement -Clinical Debridement Subcutaneous Subcutaneous -Post Debridement Size (cm) - Length 1.0 0.4 -Post Debridement Size (cm) - Width 0.8 0.3 -Post Debridement Size (cm) - Depth 0.1 0.3 -Total Square Cm 0.80 0.12 -Wound/Ulcer Outcome Not Healed Not Healed -Ulcer Cleansing Rinsed/ Irrigated with Saline -Foul Odor after Cleansing No -Bioengineered Tissue Yes -Type of bioengineered Tissue [id number] -Bleeding Controlled with Pressure Pressure -Offloading Yes -Treatment Response Procedure Tolerated Well #3- L LAT PLANTAR FOOT -Time 09:35 11:05 -Correct Patient Yes Yes -Correct Side, Site, Position Yes Yes -Correct Procedure Yes Yes -Procedure Performed Yes Yes -Type of Procedure Debridement Debridement -Clinical Debridement Subcutaneous Subcutaneous -Post Debridement Size (cm) - Length 1.2 0.8 -Post Debridement Size (cm) - Width 1.5 1.1 -Post Debridement Size (cm) - Depth 0.1 0.2 -Total Square Cm 1.80 0.88 -Wound/Ulcer Outcome Not Healed Not Healed -Ulcer Cleansing Rinsed/ Irrigated with Saline -Foul Odor after Cleansing No -Bioengineered Tissue Yes -Type of bioengineered Tissue [id number] -Bleeding Controlled with Pressure NA -Offloading Yes -Treatment Response Procedure Tolerated Well Pain Scale: 0-10 Numeric Is Patient Pain Free? Yes Yes Wound debrided: sub 5th metatarsal head Laterality: Right Wound Grade/Stage: grade 1 Type of Debridement: Excisional debridement Anesthesia Used: 5% Lidocaine Gel Depth: in the subcutaneous layer Percentage of wound debrided: 100 Instrument Used: #15 blade Tissue Removed: fibrous, devitalized subcutaneous, biofilm, slough Severity: Fat Layer Exposed Amount of bleeding with debridement: Mild Bleeding Controlled with: Pressure Patient tolerated procedure well - Additional Wound Wound debrided: sub 5th metatarsal head Laterality: Left Wound Grade/Stage: grade 1 Type of Debridement: Excisional debridement Anesthesia Used: 5% Lidocaine Gel Depth: in the subcutaneous layer Percentage of wound debrided: 100 Instrument Used: #15 blade Tissue Removed: fibrous, devitalized subcutaneous, biofilm, slough Severity: Fat Layer Exposed Amount of bleeding with debridement: Mild Bleeding Controlled with: Pressure Patient tolerated procedure: Patient tolerated procedure well Assessment/Plan Assessment: see above diagnoses Plan: The patient was seen and examined at the wound center today and was updated on the plan of care. A subcutaneous excisional debridement was performed today and the patient tolerated well to bilateral foot. The patients w ound care will consist of: Application of purapply was applied today and secured with a wound veil and Steri-Strips to bilateral foot. The indication purpose was discussed and he understands anticipated healing time and management. Bilateral unna boots for compression and he seems to be doing well with this plan so far. These were reapplied today and he will return on Sunday for nurse visit to change the overlying wounds. Patient was educated on offloading mechanisms and a referral to podiatry was placed. I recommended bilateral surgical shoes with offloading dual density Plastizote liners with pockets cut out around the ulcer sites. Cultures from prior showed staph, strep, anaerobic cocci and patient tolerated Augmentin well. There are no local or systemic signs of illness today and I do not recommend a any new antibiotic prescriptions at this time. Vascular studies reviewed and showed left DANIKA of 0.76 and right DANIKA of 0.82 with mild and moderate arterial occlusive disease, instructed patient to follow-up with his vascular specialist. We will also request prior records from his vascular surgeon for continuity of care. He reports he had arterial stents placed in the lower extremities by Dr. Jeong. 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 I recommended vascular referral with pain specialist, Dr. Thomas to address his concurrent venous insufficiency. Patient educated on the importance of diet on wound healing and instructed to increase protein and vitamin C intake. Patient verbalized understanding. Nutritional supplement, Nolan, was prescribed and he was advised on proper use. This was prescribed to optimize healing. It is noted that his albumin was 2.9 and prealbumin was 19. This may be indicative of poor nutritional status or chronic inflammatory status. His other baseline labs were reviewed from March 13 including CBC without leukocytosis or other gross abnormality, CMP without gross abnormality, and hemoglobin A1c of 6.4%. Smoking cessation was discussed and he demonstrates understanding that this will continue to impair his healing capabilities. Patient will follow up at wound healing center in one week or sooner if needed. I answered all his questions. To call sooner if he develops any new signs of infection or illness.
== END 2019-03-20 23:59 ==
LOC: WC 11:30
PROVIDERS: Family Provider Nurse Practitioner Family; PCP Nurse Practitioner Family; Referring Provider Nurse Practitioner Family; Visit Provider Nurse Practitioner Family
DX: E11.621 Type 2 diabetes mellitus with foot ulcer (principal); L97.512 Non-pressure chronic ulcer of other part of right foot with fat layer exposed; R60.0 Localized edema; E66.9 Obesity, unspecified; I10 Essential (primary) hypertension; I87.2 Venous insufficiency (chronic) (peripheral); L97.522 Non-pressure chronic ulcer of other part of left foot with fat layer exposed; Z95.5 Presence of coronary angioplasty implant and graft; I25.10 Atherosclerotic heart disease of native coronary artery without angina pectoris; F17.200 Nicotine dependence, unspecified, uncomplicated; E11.42 Type 2 diabetes mellitus with diabetic polyneuropathy; E11.51 Type 2 diabetes mellitus with diabetic peripheral angiopathy without gangrene
CPT/HCPCS: 15275; 29580; 29581; 99213; Q4196; G0463

== ENCOUNTER 2019-04-11 08:30 | Outpatient (RCR) | payer MEDICARE, BC, SELFPAY ==
[2019-03-21 01:14] VITALS: BP 149/68; PULSE 87; RESP 20; TEMP 36.1
[2019-03-21 11:23] VITALS: BP 138/56; PULSE 77; RESP 18; TEMP 36.1; BMI 76.8
[2019-03-26 10:56] VITALS: BP 157/76; PULSE 86; RESP 18; TEMP 36.6; BMI 76.8
--- NOTE | 2019-03-26 13:56 | PN.PCM_ITS ---
(1) Non-pressure chronic ulcer of other part of left foot with fat layer exposed Status: Chronic Current Visit: Yes Code(s): L97.522 - Non-pressure chronic ulcer of other part of left foot with fat layer exposed (2) Non-pressure chronic ulcer of other part of right foot with fat layer exposed Status: Chronic Current Visit: Yes Code(s): L97.512 - Non-pressure chronic ulcer of other part of right foot with fat layer exposed (3) Bilateral lower extremity edema Status: Chronic Current Visit: Yes Code(s): R60.0 - Localized edema (4) Delayed wound healing Status: Chronic Current Visit: Yes Code(s): T14.8XXD - Other injury of unspecified body region, subsequent encounter (5) Malnutrition Status: Chronic Current Visit: Yes Code(s): E46 - Unspecified protein- calorie malnutrition (6) Type 2 diabetes mellitus with diabetic polyneuropathy Status: Chronic Current Visit: Yes Code(s): E11.42 - Type 2 diabetes mellitus with diabetic polyneuropathy (7) Dermatitis Status: Chronic Current Visit: Yes Code(s): L30.9 - Dermatitis, unspecified Type of Wound Date of Service: 03/26/19 Chief Complaint: Right and left foot ulcers History of Wound: Shayan is a pleasant 73-year-old male who presents today with complaint of bilateral superficial lower leg ulcers and edema. Significant past medical history includes a 60+ pack year history of smoking tobacco, cardiovascular disease with cardiac stenting, peripheral vascular disease of bilateral lower extremities, and vnx-[id number]-[id number] diabetes. He has seen a vascular surgeon, Minesh Jeong, for placement of stents in legs. He does have a follow-up arterial status at the end of this month. He continues to follow-up as advised. He relates he has not been seen specifically for his veins. Denies any fever, chills, nausea, vomiting, diarrhea, purulent, or redness. He is currently on Plavix and aspirin for maintenance of cardiac stents. He does have bilateral surgical shoe with offloading pockets that he [facility]; he is wearing these as advised. Truck he tries to take nutritional supplementation. He has been having a unna boots and puraply advanced product applied. His legs continue to have extreme scaling and peeling. He is a diabetic and relates recent hemoglobin A1c in the 6 range. Progress of Wound: Improving - Physical Exam Vital Signs Temp Pulse Resp BP 97.8 F 86 18 157/76 H 03/26/19 10:56 03/26/19 10:56 03/26/19 10:56 03/26/19 10:56 General: Alert, Oriented x3, Cooperative, No apparent distress HEENT: Atraumatic Extremities: Capillary Refill Less than 3 Seconds, No Calf Tenderness - Negative Vikki and Mason sign bilateral, Diminished Peripheral Pulses, Edema - Bilateral lower extremities with venous stasis skin changes including skin peeling and atrophic skin Skin: Ulcer/ Wound - No purulence, erythema, streaking, odor, infection. Bilateral sub-fifth metatarsal head ulcers are decreasing in size with peripheral epithelialization. His skin is very atrophic and hyperpigmented with skin peeling bilateral lower extremities Wound Measurements and Assessment WC - Nurse 1 - General Ulcer Measurement Start: 03/21/19 11:23 Freq: Status: Active Protocol: Activity Type Activity Date Activity User E-Sign Co-Sign Detail Recorded Client Recorded Date Recorded By Document 03/26/19 10:56 DL [id number] 03/26/19 11:13 DL 03/26/19 10:56 Wound Center Nurse 1 [Ulcer Assessment] #4 RIGHT PLANTAR DFU -Current Size (cm) - Length 0.6 -Current Size (cm) - Width 0.8 -Current Size (cm) - Depth 0.1 -Total Square Cm 0.48 -Photo Taken No -Exudate Amt None Present -Wound Margin Distinct, Outline Attached -Granulation Amt Large (67-100%) -Granulation Quality [place] -Necrosis Amt Small (1-33%) -Necrotic Tissue Type Adherent Slough -Structure Exposed N/A -Texture (Snow-wound Skin Appearance) Friable, Scarring -Moisture (Snow-wound Skin Appearance Dry/Scaly ) -Color (Snow-wound Skin Appearance) Hemosiderin Staining -Temperature (Snow-wound Skin No Abnormality Appearance) (Pt Warm) -Tenderness on Palpation (Snow-wound No Skin Appearance) -Ulcer Cleansing Wound Cleanser -Foul Odor after Cleansing No -Anesthetic Used 5% Lidocaine Gel #3- L LAT PLANTAR FOOT -Current Size (cm) - Length 0.2 -Current Size (cm) - Width 0.2 -Current Size (cm) - Depth 0.2 -Total Square Cm 0.04 -Photo Taken No -Maximum Distance #2 (cm) 0.4 -Circular Undermining Yes -Exudate Amt Small -Exudate Type Purulent -Wound Margin Thickened -Granulation Amt None Present (0 %) -Necrosis Amt Large (67-100%) -Necrotic Tissue Type Adherent Slough -Structure Exposed N/A -Texture (Snow-wound Skin Appearance) Friable, Scarring -Moisture (Snow-wound Skin Appearance Dry/Scaly ) -Color (Snow-wound Skin Appearance) Hemosiderin Staining -Temperature (Snow-wound Skin No Abnormality Appearance) (Pt Warm) -Tenderness on Palpation (Snow-wound No Skin Appearance) -Anesthetic Used 5% Lidocaine Gel [Edema Assessment] -Point of measurement (cm from the 35.6 medial instep) -Point of Measurement (cm from the 24.4 medial instep) -Point of measurement (cm from the 37 medial instep) -Point of Measurement (cm from the 24.7 medial instep) WC - Nurse 2 - General Ulcer CM Notes Start: 03/21/19 11:23 Freq: Status: Active Protocol: Activity Type Activity Date Activity User E-Sign Co-Sign Detail Recorded Client Recorded Date Recorded By Document 03/26/19 11:46 [email or web address] [id number] 03/26/19 11:51 GONZALEZ 03/26/19 11:46 Wound Center Nurse 2 [Procedure/Treatment] #4 RIGHT PLANTAR DFU -Time 11:47 -Correct Patient Yes -Correct Side, Site, Position Yes -Correct Procedure Yes -Procedure Performed Yes -Type of Procedure Debridement -Clinical Debridement Subcutaneous -Post Debridement Size (cm) - Length 0.6 -Post Debridement Size (cm) - Width 0.9 -Post Debridement Size (cm) - Depth 0.1 -Total Square Cm 0.54 -Wound/Ulcer Outcome Not Healed -Ulcer Cleansing Rinsed/ Irrigated with Saline -Foul Odor after Cleansing No -Bioengineered Tissue Yes -Type of bioengineered Tissue [id number] -Bleeding Controlled with Pressure -Offloading No -Treatment Response Procedure Tolerated Well #3- L LAT PLANTAR FOOT -Time 11:50 -Correct Patient Yes -Correct Side, Site, Position Yes -Correct Procedure Yes -Procedure Performed Yes -Type of Procedure Debridement -Clinical Debridement Subcutaneous -Post Debridement Size (cm) - Length 0.3 -Post Debridement Size (cm) - Width 0.3 -Post Debridement Size (cm) - Depth 0.1 -Total Square Cm 0.09 -Wound/Ulcer Outcome Not Healed -Ulcer Cleansing Rinsed/ Irrigated with Saline -Foul Odor after Cleansing No -Bioengineered Tissue Yes -Type of bioengineered Tissue [id number] -Bleeding Controlled with Pressure -Offloading No -Treatment Response Procedure Tolerated Well [See Physician Procedure note for Specifics] Pain Scale: 0-10 Numeric [Pain] -Is Patient Pain Free? Yes Musculoskeletal: No Tenderness to Palpation of Joints or Extremities, Muscle Wasting, - - Compartment soft to palpate bilateral Neurological: - - Lack of normal epicritic sensation light touch consistent with neuropathy bilateral lower extremities Psych/Mental Status: Normal Affect, Appropriate Debridement Note Post-Debridement Measurements/Treatment WC - Nurse 2 - General Ulcer CM Notes Start: 03/21/19 11:23 Freq: Status: Active Protocol: Activity Type Activity Date Activity User E-Sign Co-Sign Detail Recorded Client Recorded Date Recorded By Document 03/26/19 11:46 [email or web address] [id number] 03/26/19 11:51 GONZALEZ 03/26/19 11:46 Wound Center Nurse 2 #4 RIGHT PLANTAR DFU -Time 11:47 -Correct Patient Yes -Correct Side, Site, Position Yes -Correct Procedure Yes -Procedure Performed Yes -Type of Procedure Debridement -Clinical Debridement Subcutaneous -Post Debridement Size (cm) - Length 0.6 -Post Debridement Size (cm) - Width 0.9 -Post Debridement Size (cm) - Depth 0.1 -Total Square Cm 0.54 -Wound/Ulcer Outcome Not Healed -Ulcer Cleansing Rinsed/ Irrigated with Saline -Foul Odor after Cleansing No -Bioengineered Tissue Yes -Type of bioengineered Tissue [id number] -Bleeding Controlled with Pressure -Offloading No -Treatment Response Procedure Tolerated Well #3- L LAT PLANTAR FOOT -Time 11:50 -Correct Patient Yes -Correct Side, Site, Position Yes -Correct Procedure Yes -Procedure Performed Yes -Type of Procedure Debridement -Clinical Debridement Subcutaneous -Post Debridement Size (cm) - Length 0.3 -Post Debridement Size (cm) - Width 0.3 -Post Debridement Size (cm) - Depth 0.1 -Total Square Cm 0.09 -Wound/Ulcer Outcome Not Healed -Ulcer Cleansing Rinsed/ Irrigated with Saline -Foul Odor after Cleansing No -Bioengineered Tissue Yes -Type of bioengineered Tissue [id number] -Bleeding Controlled with Pressure -Offloading No -Treatment Response Procedure Tolerated Well Pain Scale: 0-10 Numeric Is Patient Pain Free? Yes Wound debrided: sub 5th metatarsal head Laterality: Right Wound Grade/Stage: grade 1 Type of Debridement: Excisional debridement Anesthesia Used: 5% Lidocaine Gel Depth: in the subcutaneous layer Percentage of wound debrided: 100 Instrument Used: #15 blade Tissue Removed: fibrous, devitalized subcutaneous, biofilm, slough Severity: Fat Layer Exposed Amount of bleeding with debridement: Mild Bleeding Controlled with: Pressure Patient tolerated procedure well - Additional Wound Wound debrided: sub 5th metatarsal head Laterality: Left Wound Grade/Stage: grade 1 Type of Debridement: Excisional debridement Anesthesia Used: 5% Lidocaine Gel Depth: in the subcutaneous layer Percentage of wound debrided: 100 Instrument Used: #15 blade Tissue Removed: fibrous, devitalized subcutaneous, biofilm, slough Severity: Fat Layer Exposed Amount of bleeding with debridement: Mild Bleeding Controlled with: Pressure Patient tolerated procedure: Patient tolerated procedure well Assessment/Plan Active Problems Bilateral lower extremity edema (Chronic) Non-pressure chronic ulcer of other part of right foot with fat layer exposed (Chronic) Non-pressure chronic ulcer of other part of left foot with fat layer exposed (Chronic) Delayed wound healing (Chronic) Malnutrition (Chronic) Type 2 diabetes mellitus with diabetic polyneuropathy (Chronic) Dermatitis (Chronic) Assessment: see above diagnoses Plan: The patient was seen and examined at the wound center today and was updated on the plan of care. A subcutaneous excisional debridement was performed today and the patient tolerated well to bilateral foot. The patients wound care will consist of: Application of puraply was applied today and secured with a wound veil and Steri-Strips to bilateral foot. The indication purpose was discussed and he understands anticipated healing time and management. To discontinue the boot at this time. We will try a temporary course of triamcinolone cream for 1 to 3 weeks at the most. A prescription was provided today. He will continue with compression dressing of a Tubigrip which she demonstrates ability to apply. Patient was educated on offloading mechanisms and a referral to podiatry was placed. I recommended bilateral surgical shoes with offloading dual density Plastizote liners with pockets cut out around the ulcer sites. Cultures from prior showed staph, strep, anaerobic cocci and patient tolerated Augmentin well. There are no local or systemic signs of illness today and I do not recommend a any new antibiotic prescriptions at this time. Vascular studies reviewed and showed left DANIKA of 0.76 and right DANIKA of 0.82 with mild and moderate arterial occlusive disease, instructed patient to follow-up with his vascular specialist. We will also request prior records from his vascular surgeon for continuity of care. He reports he had arterial stents placed in the lower extremities by Dr. Jeong. He has a follow-up at the end of this month and I recommend he proceeds to see if any additional intervention is needed. 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 I recommended vascular referral with pain specialist, Dr. Thomas to address his concurrent venous insufficiency. Patient educated on the importance of diet on wound healing and instructed to increase protein and vitamin C intake. Patient verbalized understanding. Nutritional supplement, Nolan, was prescribed and he was advised on proper use. This was prescribed to optimize healing. It is noted that his albumin was 2.9 and prealbumin was 19. This may be indicative of poor nutritional status or chronic inflammatory status. His other baseline labs were reviewed from March 13 including CBC without leukocytosis or other gross abnormality, CMP without gross abnormality, and hemoglobin A1c of 6.4%. Smoking cessation was discussed and he demonstrates understanding that this will continue to impair his healing capabilities. Patient will follow up at wound healing center in one week or sooner if needed. I answered all his questions. To call sooner if he develops any new signs of infection or illness.
[2019-04-02 08:43] VITALS: BP 130/67; PULSE 113; RESP 20; TEMP 36.6; BMI 76.8
--- NOTE | 2019-04-02 10:01 | PCM.WC.PN ---
(1) Non-pressure chronic ulcer of other part of left foot with fat layer exposed Status: Chronic Current Visit: Yes Code(s): L97.522 - Non-pressure chronic ulcer of other part of left foot with fat layer exposed (2) Non-pressure chronic ulcer of other part of right foot with fat layer exposed Status: Chronic Current Visit: Yes Code(s): L97.512 - Non-pressure chronic ulcer of other part of right foot with fat layer exposed (3) Bilateral lower extremity edema Status: Chronic Current Visit: Yes Code(s): R60.0 - Localized edema (4) Delayed wound healing Status: Chronic Current Visit: Yes Code(s): T14.8XXD - Other injury of unspecified body region, subsequent encounter (5) Malnutrition Status: Chronic Current Visit: Yes Code(s): E46 - Unspecified protein-calorie malnutrition (6) Type 2 diabetes mellitus with diabetic polyneuropathy Status: Chronic Current Visit: Yes Code(s): E11.42 - Type 2 diabetes mellitus with diabetic polyneuropathy (7) Dermatitis Status: Chronic Current Visit: Yes Code(s): L30.9 - Dermatitis, unspecified Type of Wound Date of Service: 04/02/19 Chief Complaint: Right and left foot ulcers History of Wound: Shayan is a pleasant 73-year-old male who presents today with complaint of bilateral superficial lower leg ulcers and edema. Significant past medical history includes a 60+ pack year history of smoking tobacco, cardiovascular disease with cardiac stenting, peripheral vascular disease of bilateral lower extremities, and [id number] diabetes. He has seen a vascular surgeon, Minesh Jeong, for placement of stents in legs. He does have a follow-up arterial status at the end of this month. He continues to follow-up as advised. He relates he has not been seen specifically for his veins but is now scheduled to see Dr. Thomas. Denies any fever, chills, nausea, vomiting, diarrhea, purulent, or redness. He is currently on Plavix and aspirin for maintenance of cardiac stents. He does have bilateral surgical shoe with offloading pockets that [facility]; he is wears this except not when it is snowing. He wore Tubigrip's last week and apply triamcinolone cream and thinks his legs look much better this week. He is a diabetic and relates recent hemoglobin A1c in the 6 range. Progress of Wound: Improving - Physical Exam Vital Signs Temp Pulse Resp BP 97.8 F 113 H 20 H 130/67 H 04/02/19 08:43 04/02/19 08:43 04/02/19 08:43 04/02/19 08:43 General: Alert, Oriented x3, Cooperative Extremities: No cyanosis, Capillary Refill Less than 3 Seconds, No Calf Tenderness - Negative Vikki and Mason sign bilateral, Diminished Peripheral Pulses, Edema Skin: Ulcer/ Wound - No purulence, erythema, string, odor, infection. Peripheral epithelialization is noted. His peripheral foot skin is still dry and scaling. His leg skin has much improved with decreased scaling peeling and superficial sub-hemorrhagic tissue is no longer noted. Wound Measurements and Assessment WC - Nurse 1 - General Ulcer Measurement Start: 03/21/19 11:23 Freq: Status: Active Protocol: Activity Type Activity Date Activity User E-Sign Co-Sign Detail Recorded Client Recorded Date Recorded By Document 04/02/19 08:43 DL [id number] 04/02/19 08:56 DL 04/02/19 08:43 Wound Center Nurse 1 [Ulcer Assessment] #4 RIGHT PLANTAR DFU -Current Size (cm) - Length 0.2 -Current Size (cm) - Width 0.2 -Current Size (cm) - Depth 0.3 -Total Square Cm 0.04 -Photo Taken No -Maximum Distance #2 (cm) 0.3 -Circular Undermining Yes -Exudate Amt None Present -Wound Margin Thickened -Granulation Amt Small (1-33%) -Granulation Quality Lefors -Necrosis Amt Small (1-33%) -Necrotic Tissue Type Adherent Slough -Texture (Snow-wound Skin Appearance) Excoriation, Scarring -Moisture (Snow-wound Skin Appearance Dry/Scaly ) -Color (Snow-wound Skin Appearance) Hemosiderin Staining -Temperature (Snow-wound Skin No Abnormality Appearance) (Pt Warm) -Tenderness on Palpation (Snow-wound No Skin Appearance) -Ulcer Cleansing Wound Cleanser -Foul Odor after Cleansing No -Anesthetic Used 4% Lidocaine Solution #3- L LAT PLANTAR FOOT -Current Size (cm) - Length 0.5 -Current Size (cm) - Width 0.7 -Current Size (cm) - Depth 0.2 -Total Square Cm 0.35 -Photo Taken No -Exudate Amt None Present -Wound Margin Thickened -Granulation Amt Large (67-100%) -Granulation Quality Pale,Lefors -Necrosis Amt Small (1-33%) -Necrotic Tissue Type Adherent Slough -Structure Exposed N/A -Texture (Snow-wound Skin Appearance) Excoriation, Scarring -Moisture (Snow-wound Skin Appearance Dry/Scaly ) -Color (Snow-wound Skin Appearance) Hemosiderin Staining -Temperature (Snow-wound Skin No Abnormality Appearance) (Pt Warm) -Tenderness on Palpation (Snow-wound No Skin Appearance) -Ulcer Cleansing Wound Cleanser -Anesthetic Used 4% Lidocaine Solution [Edema Assessment] -Right Calf (cm) 36 -Right Ankle (cm) 25.5 -Left Calf (cm) 39.5 -Left Ankle (cm) 25 WC - Nurse 2 - General Ulcer CM Notes Start: 03/21/19 11:23 Freq: Status: Active Protocol: Activity Type Activity Date Activity User E-Sign Co-Sign Detail Recorded Client Recorded Date Recorded By Document 04/02/19 09:13 [email or web address] [id number] 04/02/19 09:14 [email or web address] 04/02/19 09:13 Wound Center Nurse 2 [Procedure/Treatment] #4 RIGHT PLANTAR DFU -Time 09:13 -Correct Patient Yes -Correct Side, Site, Position Yes -Correct Procedure Yes -Procedure Performed Yes -Type of Procedure Debridement -Clinical Debridement Subcutaneous -Post Debridement Size (cm) - Length 0.3 -Post Debridement Size (cm) - Width 0.3 -Post Debridement Size (cm) - Depth 0.3 -Total Square Cm 0.09 -Wound/Ulcer Outcome Not Healed -Ulcer Cleansing Rinsed/ Irrigated with Saline -Foul Odor after Cleansing No -Bioengineered Tissue No -Bleeding Controlled with Pressure -Offloading Yes -Type of Offloading Surgical Shoe -Treatment Response Procedure Tolerated Well #3- L LAT PLANTAR FOOT -Time 09:13 -Correct Patient Yes -Correct Side, Site, Position Yes -Correct Procedure Yes -Procedure Performed Yes -Type of Procedure Debridement -Clinical Debridement Subcutaneous -Post Debridement Size (cm) - Length 0.6 -Post Debridement Size (cm) - Width 0.7 -Post Debridement Size (cm) - Depth 0.2 -Total Square Cm 0.42 -Wound/Ulcer Outcome Not Healed -Ulcer Cleansing Rinsed/ Irrigated with Saline -Foul Odor after Cleansing No -Bioengineered Tissue No -Bleeding Controlled with Pressure -Offloading Yes -Type of Offloading Surgical Shoe -Treatment Response Procedure Tolerated Well [See Physician Procedure note for Specifics] Pain Scale: 0-10 Numeric [Pain] -Is Patient Pain Free? Yes Musculoskeletal: No Tenderness to Palpation of Joints or Extremities, Muscle Wasting Neurological: - - Lack of normal epicritic sensation light touch bilateral foot Psych/Mental Status: Normal Affect, Appropriate Debridement Note Post-Debridement Measurements/Treatment WC - Nurse 2 - General Ulcer CM Notes Start: 03/21/19 11:23 Freq: Status: Active Protocol: Activity Type Activity Date Activity User E-Sign Co-Sign Detail Recorded Client Recorded Date Recorded By Document 03/26/19 11:46 [id number] 03/26/19 11:51 Document 04/02/19 09:13 [id number] 04/02/19 09:14 03/26/19 04/02/19 11:46 09:13 Wound Center Nurse 2 #4 RIGHT PLANTAR DFU -Time 11:47 09:13 -Correct Patient Yes Yes -Correct Side, Site, Position Yes Yes -Correct Procedure Yes Yes -Procedure Performed Yes Yes -Type of Procedure Debridement Debridement -Clinical Debridement Subcutaneous Subcutaneous -Post Debridement Size (cm) - Length 0.6 0.3 -Post Debridement Size (cm) - Width 0.9 0.3 -Post Debridement Size (cm) - Depth 0.1 0.3 -Total Square Cm 0.54 0.09 -Wound/Ulcer Outcome Not Healed Not Healed -Ulcer Cleansing Rinsed/ Rinsed/ Irrigated with Irrigated with Saline Saline -Foul Odor after Cleansing No No -Bioengineered Tissue Yes No -Type of bioengineered Tissue [id number] -Expiration Date 06/30/21 -Product Lot Number [id number] -Percent Used 100 -Saline Lot Number [id number] -Bleeding Controlled with Pressure Pressure -Offloading No Yes -Type of Offloading Surgical Shoe -Treatment Response Procedure Procedure Tolerated Well Tolerated Well #3- L LAT PLANTAR FOOT -Time 11:50 09:13 -Correct Patient Yes Yes -Correct Side, Site, Position Yes Yes -Correct Procedure Yes Yes -Procedure Performed Yes Yes -Type of Procedure Debridement Debridement -Clinical Debridement Subcutaneous Subcutaneous -Post Debridement Size (cm) - Length 0.3 0.6 -Post Debridement Size (cm) - Width 0.3 0.7 -Post Debridement Size (cm) - Depth 0.1 0.2 -Total Square Cm 0.09 0.42 -Wound/Ulcer Outcome Not Healed Not Healed -Ulcer Cleansing Rinsed/ Rinsed/ Irrigated with Irrigated with Saline Saline -Foul Odor after Cleansing No No -Bioengineered Tissue Yes No -Type of bioengineered Tissue [id number] -Expiration Date 06/30/21 -Product Lot Number [id number] -Percent Used 100 -Saline Lot Number [id number] -Bleeding Controlled with Pressure Pressure -Offloading No Yes -Type of Offloading Surgical Shoe -Treatment Response Procedure Procedure Tolerated Well Tolerated Well Pain Scale: 0-10 Numeric Is Patient Pain Free? Yes Yes Wound debrided: sub 5th metatarsal head Laterality: Right Wound Grade/Stage: grade 1 Type of Debridement: Excisional debridement Anesthesia Used: 5% Lidocaine Gel Depth: in the subcutaneous layer Percentage of wound debrided: 100 Instrument Used: #15 blade Tissue Removed: fibrous, devitalized subcutaneous, biofilm, slough Severity: Fat Layer Exposed Amount of bleeding with debridement: Mild Bleeding Controlled with: Pressure Patient tolerated procedure well - Additional Wound Wound debrided: sub 5th metatarsal head Laterality: Left Wound Grade/Stage: grade 1 Type of Debridement: Excisional debridement Anesthesia Used: 5% Lidocaine Gel Depth: in the subcutaneous layer Percentage of wound debrided: 100 Instrument Used: #15 blade Tissue Removed: fibrous, devitalized subcutaneous, biofilm, slough Severity: Fat Layer Exposed Amount of bleeding with debridement: Mild Bleeding Controlled with: Pressure Patient tolerated procedure: Patient tolerated procedure well Assessment/Plan Active Problems Bilateral lower extremity edema (Chronic) Non-pressure chronic ulcer of other part of right foot with fat layer exposed (Chronic) Non-pressure chronic ulcer of other part of left foot with fat layer exposed (Chronic) Delayed wound healing (Chronic) Malnutrition (Chronic) Type 2 diabetes mellitus with diabetic polyneuropathy (Chronic) Dermatitis (Chronic) Assessment: see above diagnoses Plan: The patient was seen and examined at the wound center today and was updated on the plan of care. A subcutaneous excisional debridement was performed today and the patient was advised to change dressing daily with Maura. To continue temporary course of triamcinolone cream for 1 to 3 weeks at the most. He will continue with compression dressing of a Tubigrip which she demonstrates ability to apply. Patient was educated on offloading mechanisms and a referral to podiatry was placed. I recommended bilateral surgical shoes with offloading dual density Plastizote liners with pockets cut out around the ulcer sites. He will bring these in next week for adjustment because he feels like his heel slipping. Cultures from prior showed staph, strep, anaerobic cocci and patient tolerated Augmentin well. There are no local or systemic signs of illness today and I do not recommend a any new antibiotic prescriptions at this time. Vascular studies reviewed and showed left DANIKA of 0.76 and right DANIKA of 0.82 with mild and moderate arterial occlusive disease, instructed patient to follow-up with his vascular specialist. We will also request prior records from his vascular surgeon for continuity of care. He reports he had arterial stents placed in the lower extremities by Dr. Jeong. He has a follow-up at the end of this month and I recommend he proceeds to see if any additional intervention is needed. 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 I recommended vascular referral with pain specialist, Dr. Thomas to address his concurrent venous insufficiency. Patient educated on the importance of diet on wound healing and instructed to increase protein and vitamin C intake. Patient verbalized understanding. Nutritional supplement, Nolan, was prescribed and he was advised on proper use. This was prescribed to optimize healing. It is noted that his albumin was 2.9 and prealbumin was 19. This may be indicative of poor nutritional status or chronic inflammatory status. His other baseline labs were reviewed from March 13 including CBC without leukocytosis or other gross abnormality, CMP without gross abnormality, and hemoglobin A1c of 6.4%. Smoking cessation was discussed and he demonstrates understanding that this will continue to impair his healing capabilities. Patient will follow up at wound healing center in one week or sooner if needed. I answered all his questions. To call sooner if he develops any new signs of infection or illness.
[2019-04-11 08:58] VITALS: BP 130/71; PULSE 87; RESP 18; TEMP 36.9; BMI 76.8
== END 2019-04-19 23:59 ==
LOC: WC 08:30
PROVIDERS: Family Provider Nurse Practitioner Family; PCP Nurse Practitioner Family; Referring Provider Nurse Practitioner Family; Visit Provider Podiatrist
DX: E11.621 Type 2 diabetes mellitus with foot ulcer (principal); L97.512 Non-pressure chronic ulcer of other part of right foot with fat layer exposed; E11.42 Type 2 diabetes mellitus with diabetic polyneuropathy; R60.0 Localized edema; L97.522 Non-pressure chronic ulcer of other part of left foot with fat layer exposed; L30.9 Dermatitis, unspecified; Z87.891 Personal history of nicotine dependence; E11.51 Type 2 diabetes mellitus with diabetic peripheral angiopathy without gangrene; Z79.02 Long term (current) use of antithrombotics/antiplatelets; I25.10 Atherosclerotic heart disease of native coronary artery without angina pectoris
CPT/HCPCS: 11042; 15275; 29580; 99213; Q4196; G0463